=== PATIENT | male | born 1980 | race Caucasian/White ===

== ENCOUNTER 2021-01-23 14:17 | Inpatient (IN) | payer OTHER, SELFPAY ==
--- NOTE | ~2021-01-23 | US_ITS ---
EXAMINATION: US VENOUS ULTRASOUND WITH DOPPLER LOWER EXTREMITY, BILATERAL CLINICAL INFORMATION: Bilateral lower extremity swelling COMPARISON: None TECHNIQUE: Ultrasound of the deep veins is performed from the hip to the calf with compression sonography and color and pulse Doppler assessment. Spectral analysis with color-flow imaging is performed. FINDINGS: RIGHT: There is normal venous compression and respiratory variation and augmented flow. The visualized common femoral vein, superficial femoral vein, profunda femoral vein, popliteal vein, and the trifurcation region shows no evidence of deep venous thrombosis. There is no significant popliteal fossa cyst. LEFT: There is normal venous compression and respiratory variation and augmented flow. The visualized common femoral vein, superficial femoral vein, profunda femoral vein, popliteal vein, and the trifurcation region shows no evidence of deep venous thrombosis. There is no significant popliteal fossa cyst. US/US venous duplex LE BI IMPRESSION: No DVT demonstrated in the bilateral lower extremity.
--- NOTE | ~2021-01-23 | XR_ITS ---
EXAMINATION: CHEST 1 VIEW CLINICAL INFORMATION: Shortness of breath. COMPARISON: October 07, 2015. TECHNIQUE: An AP view of the chest is provided. FINDINGS: The cardiac silhouette is prominent. There are no consolidations. There is mild interstitial prominence throughout both lungs. There are neither pleural effusions nor pneumothoraces. The osseous structures are stable. XR/XR chest 1V IMPRESSION: Mild cardiomegaly with mild vascular congestion. No consolidations.
[2021-01-23 14:28] VITALS: BP 150/102; PULSE 123; RESP 18; TEMP 36.5; O2SAT 98; BMI 26.9
--- NOTE | 2021-01-23 14:56 | ED.GENADULT ---
HPI - General Adult General Chief complaint: Extremity Problem Stated complaint: feet and ankles swollen Time Seen by Provider: 01/23/21 14:56 Source: patient Mode of arrival: ambulatory Limitations: no limitations History of Present Illness HPI narrative: 40-year-old male with past medical history that is significant for cardiomyopathy he states he has been told this in the past but not exactly sure what is the cause of this, hypertension, hyperlipidemia, alcohol abuse who reports he currently drinks 1 pt of liquor a day plus several beers. States he called his primary care doctor today for lower extremity swelling has been going on for past couple days and was advised to come to emergency room. Related Data Home Medications Medication Instructions Recorded Confirmed albuterol sulfate [ProAir HFA] 2 puff INHALATION Q4H PRN 01/23/21 01/23/21 budesonide-formoterol 2 puff INHALATION BID 01/23/21 01/23/21 umeclidinium [Incruse Ellipta] 1 puff INHALATION DAILY 01/23/21 01/23/21 Allergies Allergy/AdvReac Type Severity Reaction Status Date / Time melon Allergy Severe SWELLING Verified 01/23/21 14:28 soy [SOY] Allergy Severe RESPIRATORY Verified 01/23/21 14:28 PROBLEMS acetaminophen [From TYLENOL] Allergy Unknown UNKNOWN Verified 01/23/21 14:28 azithromycin [From ZITHROMAX] Allergy Unknown UNKNOWN Verified 01/23/21 14:28 nut - unspecified [nut] Allergy Unknown RESPIRATORY Verified 01/23/21 14:28 ISSUES SEAFOOD Allergy Severe SWELLING, Uncoded 01/23/21 14:28 RESPIRATORY PROBLEMS Review of Systems Review of Systems: Constitutional: No Weight loss, No Fever, No Chills, No Night Sweats, No Fatigue, No Malaise ENT/Mouth: No Hearing loss, No Ear Pain, No Nasal Congestion, No Sinus Pain, No Hoarseness, No sore throat, No Rhinorrhea, No Swallowing Difficulty Eyes: No Eye Pain, No Swelling, No Redness, No Foreign Body, No Discharge, No Vision Changes Cardiovascular: No Chest Pain, No SOB, sometimes? Dyspnea on Exertion, , + Edema, No Palpitations Respiratory: No Cough, No Sputum, No Wheezing, No Smoke Exposure, No Dyspnea Gastrointestinal: No Nausea, No Vomiting, No Diarrhea, No Constipation, No abdominal Pain, No Hematochezia, No Melena Genitourinary: no irregular bleeding, No Dysuria, No Urinary Frequency, No Hematuria, No Urinary Incontinence, No Urgency, No Flank Pain, No Urinary Flow Changes, No Hesitancy Musculoskeletal: No joint pain, No Myalgias, No Joint Swelling Skin: No Skin Lesions, No rash Neuro: No Weakness, No Numbness, No Paresthesias, No Loss of Consciousness, No Dizziness, No Headache Psych: No Anxiety/Panic, No Depression, No SI/HI/AH/VH, No Social Issues Heme/Lymph: No Bruising, No Bleeding,No Lymphadenopathy Endocrine: No Polyuria, No Polydipsia, No Temperature Intolerance Yes all other systems are reviewed and are negative [facility] Past Medical History Medical History (Updated 01/23/21 @ 17:25 by Samson Bullock NP) Alcohol abuse Alcohol abuse Asthma Cardiomyopathy Cardiomyopathy Hyperlipidemia Hypertension Social History Social History (Updated 01/23/21 @ 17:01 by Nica Christiansen NP) Alcohol intake: current Alcohol intake frequency: a few times a week Alcohol type: beer and hard liquor Smoking Status: Current every day smoker Use of substances other than those prescribed or required for medical reasons: Yes Substance Use Type: Marijuana Substance Use Frequency: Socially Advance Directives: No Advance Directives Information Provided: No Physical Exam Vital Signs: Vital Signs: Last Vital Signs Temp 98.0 F 01/23/21 15:08 Pulse 114 H 01/23/21 16:25 Resp 18 01/23/21 16:25 BP 143/96 H 01/23/21 16:25 Pulse Ox 97 01/23/21 16:25 Body Mass Index 26.9 Reviewed Const: Other: Diaphoretic tachycardic General: anxious Orientation/consciousness: patient oriented x3 HENMT: Head: Yes normal to inspection Ears: hearing grossly normal bilaterally Eyes: General: appearance normal, both eyes and all related structures Visual Morales: normal visual morales by confrontation Sclerae: scleral abnormal (Slightly jaundice bilaterally) Neck: Neck: Yes normal visual inspection, No positive Brudzinski's sign, No positive Kernig's sign and No tender Thyroid: Thyroid normal Chest: Chest palpation & inspection: normal inspection of the chest Resp: Effort & Inspection: normal respiratory effort Auscultation: crackles (Bases) bilateral Cardio: Jugular venous distension: no JVD Rate: tachycardic (One hundred twenty) GI: Inspection: Yes normal to inspection Palpation (GI): Soft to palpation Percussion: Yes normal to percussion Auscultation: normal bowel sounds : General: Yes no CVA tenderness Back/Spine/Pelvis: Back: no CVA tenderness Skin: General skin exam: no rashes or lesions noted and jaundice (Mildly) Neuro: General: patient oriented x3 Extrem: General: Yes normal to inspection Psych: Appearance: well kempt Mental Status: mental status grossly normal Speech and movement: Clear speech present Affect: Anxious affect present Attitude: cooperative Thought process: Normal thought process present Thought content: Normal thought content present Insight: Good insight present (Psych) Judgement: Good judgement present (Psych) Course Course Course Narrative: States only had couple of beers today usually drinks later in the evening and in the 24 hour. At Pain of liquor and several beers. Upon arrival diaphoretic, tachycardic but no tremor. Bilateral lower extremities with 2+ edema states some mild pain to left calf. Given his history concern for alcohol withdrawal versus electrolyte derangement versus acute HF. Cardiopathy documented on his prior visit but no further workup and he has somewhat of poor historian. Will treat with IV lorazepam, banana bag not available will give oral multivitamin, folic acid and thiamine. Also given 2 mg of IV magnesium. Reevaluation(s) Reevaluation #1: Labs. Leukocytosis, history point is 22, no chest pain , BNP is 23 44 no prior. Given 10 mg IV Lasix he feels much better after lorazepam. Case discussed with hospitalist request to start phenobarbital protocol and plan for admission. Consultations Consultation #1: Nica hospitalist Medical Decision Making Lab Data Result diagrams: 01/23/21 15:16 01/23/21 15:16 Labs: Lab Results 01/23/21 01/23/21 01/23/21 Range/Units 15:16 15:16 15:16 WBC 9.6 (4.8-10.8) X10*3/uL RBC 4.46 L (4.60-5.80) X10*6/uL Hgb 15.2 (14.0-18.0) g/dl Hct 45.8 (42-52) % MCV 102.7 H (80-98) fL MCH 34.1 H (27.0-33.0) pg MCHC 33.2 (31.0-36.0) g/dl RDW 13.8 (11.0-16.0) % Plt Count 161 (160-400) X10*3/uL MPV 11.7 (9.4-12.4) fL Immature Gran % (Auto) 0.3 (0.0-0.4) % Neut % (Auto) 75.6 H (45-73) % Lymph % (Auto) 17.2 L (20-40) % [place] % (Auto) 5.4 (2-11) % Eos % (Auto) 0.9 (0-4) % Baso % (Auto) 0.6 (0-2) % Lymph # (Auto) 1.7 (1.2-4.9) X10*3/uL [place] # (Auto) 0.5 (0.1-1.2) X10*3/uL Eos # (Auto) 0.1 (0.0-0.4) X10*3/uL Baso # (Auto) 0.1 (0.0-0.2) X10*3/uL Abs Immat Gran (auto) 0.03 (0.00-0.03) X10*3/uL Absolute Neuts (auto) 7.3 (2.0-8.3) X10*3/uL Absolute Nucleated RBC 0.000 (0.0-0.012) X10*3/uL Nucleated RBC % (auto) 0.0 (0.0-0.2) /100WBC PT 13.5 H (10.8-13.0) SEC INR 1.1 (0.9-1.1) APTT 39.3 H (24.1-38.0) SEC Sodium 140 (135-145) mmol/L Potassium 4.8 (3.3-5.1) mmol/L Chloride 105 (96-108) mmol/L Carbon Dioxide 20 L (22-29) mmol/L Anion Gap 20 (12-20) BUN 10 (9-16) mg/dL Creatinine 0.94 (0.5-1.4) mg/dL Estim Creat Clear Calc 92.6 Estimated GFR > 60 Random Glucose 83 (60-115) mg/dL Calcium 8.8 (8.4-10.2) mg/dL Magnesium 1.5 L (1.6-2.6) mg/dL Total Bilirubin 2.3 H (0.0-1.0) mg/dL AST 58 H (5-37) U/L ALT 31 (0-40) U/L Alkaline Phosphatase 93 (39-117) U/L Troponin I High Sens (<3.5-35.0) ng/L B-Natriuretic Peptide (<100) pg/mL Total Protein 6.5 (6.5-8.0) g/dL Albumin 3.9 (3.5-5.0) g/dL Ethyl Alcohol mg/dL COVID-19 ([facility]) (Negative) COVID-19 Clin Com 01/23/21 01/23/21 01/23/21 Range/Units 15:16 15:16 15:34 WBC (4.8-10.8) X10*3/uL RBC (4.60-5.80) X10*6/uL Hgb (14.0-18.0) g/dl Hct (42-52) % MCV (80-98) fL MCH (27.0-33.0) pg MCHC (31.0-36.0) g/dl RDW (11.0-16.0) % Plt Count (160-400) X10*3/uL MPV (9.4-12.4) fL Immature Gran % (Auto) (0.0-0.4) % Neut % (Auto) (45-73) % Lymph % (Auto) (20-40) % [place] % (Auto) (2-11) % Eos % (Auto) (0-4) % Baso % (Auto) (0-2) % Lymph # (Auto) (1.2-4.9) X10*3/uL [place] # (Auto) (0.1-1.2) X10*3/uL Eos # (Auto) (0.0-0.4) X10*3/uL Baso # (Auto) (0.0-0.2) X10*3/uL Abs Immat Gran (auto) (0.00-0.03) X10*3/uL Absolute Neuts (auto) (2.0-8.3) X10*3/uL Absolute Nucleated RBC (0.0-0.012) X10*3/uL Nucleated RBC % (auto) (0.0-0.2) /100WBC PT (10.8-13.0) SEC INR (0.9-1.1) APTT (24.1-38.0) SEC Sodium (135-145) mmol/L Potassium (3.3-5.1) mmol/L Chloride (96-108) mmol/L Carbon Dioxide (22-29) mmol/L Anion Gap (12-20) BUN (9-16) mg/dL Creatinine (0.5-1.4) mg/dL Estim Creat Clear Calc Estimated GFR Random Glucose (60-115) mg/dL Calcium (8.4-10.2) mg/dL Magnesium (1.6-2.6) mg/dL Total Bilirubin (0.0-1.0) mg/dL AST (5-37) U/L ALT (0-40) U/L Alkaline Phosphatase (39-117) U/L Troponin I High Sens 22.6 (<3.5-35.0) ng/L B-Natriuretic Peptide 2344 H (<100) pg/mL Total Protein (6.5-8.0) g/dL Albumin (3.5-5.0) g/dL Ethyl Alcohol 48 mg/dL COVID-19 ([facility]) Negative (Negative) COVID-19 Clin Com See Note Discharge Plan Discharge Clinical Impression: Acute congestive heart failure, Alcohol abuse, Lower extremity edema, Hypomagnesemia Patient Disposition: Admitted As Inpatient Prescriptions: No Action albuterol sulfate [ProAir HFA] 90 mcg/actuation HFA aerosol inhaler 2 puff inhalation Q4H PRN (Reason: Shortness Of Breath) RF: 0 budesonide-formoterol 160-4.5 mcg/actuation HFA aerosol inhaler 2 puff inhalation BID RF: 0 Incruse Ellipta 62.5 mcg/actuation blister with device 1 puff inhalation DAILY RF: 0
--- NOTE | 2021-01-23 14:58 | ECG_ITS ---
Test Reason : TACHY Blood Pressure : / mmHG Vent. Rate : 121 BPM Atrial Rate : 121 BPM P-R Int : 128 ms QRS Dur : 188 ms QT Int : 352 ms P-R-T Axes : 073 080 -72 degrees QTc Int : 499 ms Sinus tachycardia Left atrial enlargement Left bundle branch block Abnormal ECG When compared with ECG of 07-OCT-2015 09:33, QRS duration has increased ; rate is higher Referred By: Samson Bullock Electronically Signed By:ORLANDO PLAZA
--- NOTE | 2021-01-23 14:58 | PC.NURSE ---
MICHAEL GAMBOA AT BEDSIDE FOR EXAM, REQUESTS PT BE MOVED TO ED RM3 ERIC BARRIGA [employer], ABDI AWARE, TRANSPORTED VIA WC BY ERIC MUÑOZ
[2021-01-23 15:08] VITALS: BP 140/107; PULSE 119; RESP 20; TEMP 36.7; O2SAT 97
[2021-01-23] MEDS: LORazepam 2 MG/ML VIAL 1 MG IVPUSH ×2 (15:18→17:00)
[2021-01-23 15:23] LABS: MANUAL DIFF FLAG NO
--- NOTE | 2021-01-23 15:23 | PC.NURSE ---
pt moved from em to ed bed 3, diaphoretic and tachy ranging from 120-115. pt reports coming in for left foot swelling for two days, no injury, no long travels, strong bilateral pedal pulses. visible tremor pt does report drinking daily one pint and some beers last drink was last night around 0000, no history of alcohol withdraws in the past. also reports feeling sob, sating at 96-94% on room air, slight wheezing on the right lower lobes.
[2021-01-23] MEDS: 0.9 % Sodium Chloride 500 ML IV (15:27)
[2021-01-23 15:30] LABS: INTERNATIONAL NORM RATIO 1.1 (0.9-1.1); Prothrombin Time 13.5 SEC (10.8-13.0)
[2021-01-23] MEDS: Multivitamin TABLET 1 TAB PO (15:30)
[2021-01-23] MEDS: Magnesium Sulfate/H2O 2 GM/50 ML PIGGYBACK IV (15:30)
[2021-01-23] MEDS: Thiamine HCL 100 MG TABLET PO (15:30)
[2021-01-23 15:33] LABS: Partial Thromboplastin Time 39.3 SEC (24.1-38.0)
[2021-01-23 15:34] LABS: Basophils Absolute Auto 0.1 X10*3/uL (0.0-0.2); Basophils Percent Auto 0.6 % (0-2); Eosinophils Absolute Auto 0.1 X10*3/uL (0.0-0.4); Eosinophils Percent Auto 0.9 % (0-4); Hematocrit 45.8 % (42-52); Hemoglobin 15.2 g/dl (14.0-18.0); Imm Gran Abs Auto 0.03 X10*3/uL (0.00-0.03); Imm Gran Pct Auto 0.3 % (0.0-0.4); Lymphocytes Absolute Auto 1.7 X10*3/uL (1.2-4.9); Lymphocytes Percent Auto 17.2 % (20-40); Mean Corpuscular HGB Conc 33.2 g/dl (31.0-36.0); Mean Corpuscular Hemoglobin 34.1 pg (27.0-33.0); Mean Corpuscular Volume 102.7 fL (80-98); Mean Platelet Volume 11.7 fL (9.4-12.4); Monocytes Absolute Auto 0.5 X10*3/uL (0.1-1.2); Monocytes Percent Auto 5.4 % (2-11); Neutrophils Absolute Auto 7.3 X10*3/uL (2.0-8.3); Neutrophils Percent Auto 75.6 % (45-73); Platelet Count 161 X10*3/uL (160-400); Red Blood Count 4.46 X10*6/uL (4.60-5.80); Red Cell Distribution Width 13.8 % (11.0-16.0); White Blood Count 9.6 X10*3/uL (4.8-10.8)
[2021-01-23 15:42] LABS: COVID-19 Test Negative (Negative); IDNOW Serial# 9DD0AD1C
[2021-01-23 15:55] LABS: B Type Natriuretic Peptide 2344 pg/mL (<100); Troponin-I High Sensitivity 22.6 ng/L (<3.5-35.0)
[2021-01-23 16:00] LABS: Ethanol 48 mg/dL
[2021-01-23 16:04] LABS: Alanine Aminotransferase 31 U/L (0-40); Albumin Level 3.9 g/dL (3.5-5.0); Alkaline Phosphatase 93 U/L (39-117); Anion Gap 20 (12-20); Aspartate Amino Transferase 58 U/L (5-37); Bilirubin Total 2.3 mg/dL (0.0-1.0); Blood Urea Nitrogen 10 mg/dL (9-16); Calcium 8.8 mg/dL (8.4-10.2); Carbon Dioxide 20 mmol/L (22-29); Chloride 105 mmol/L (96-108); Creatinine Clr Calc Pharmacy 92.6; Estimated Glomerular Filt Rate > 60; Glucose Random 83 mg/dL (60-115); Magnesium 1.5 mg/dL (1.6-2.6); Potassium 4.8 mmol/L (3.3-5.1); Sodium 140 mmol/L (135-145); Total Protein 6.5 g/dL (6.5-8.0)
[2021-01-23 16:25] VITALS: BP 143/96; PULSE 114; RESP 18; O2SAT 97
--- NOTE | 2021-01-23 16:26 | PC.NURSE ---
pt resting in the stretcher, reports feeling a little better, no diaphoresis noticed at this time, hr 114-113
--- NOTE | 2021-01-23 16:57 | PM.IMHP ---
History of Present Illness Date of Service: 01/23/21 Chief Complaint: Shortness of breath 40-year-old man presenting to the ER with complaints of increased shortness of breath and leg swelling over the last 2 days. He does report a history of heavy alcohol drinking and has been diagnosed with cardiomyopathy in the past. He denied fever, chest pain, nausea, vomiting, diarrhea, recent illness. He did report increased shortness of breath with ambulation and cough with brown sputum. chest x-ray showed cardiomegaly with mild vascular congestion and no consolidation. BNP 2344, total bilirubin 2.3, AST 58, magnesium 1.5, INR 1.1, COVID 19 negative. He was not noted to be hypoxic at any point. He was started on phenobarbital protocol for alcohol abuse, IV Lasix, he was also given thiamine, multivitamin. He will be admitted for further management treatment of acute congestive heart failure. Review of Systems Review of Systems: Denies any recent fever chills or decrease in appetite respiratory See HPI cardiovascular see HPI gastrointestinal denies any dysphagia abdominal pain nausea vomiting or diarrhea genitourinary denies any dysuria frequency or hematuria musculoskeletal denies any joint pain or swelling neuropsych denies any weakness or seizures all other systems reviewed are negative [facility] Medical History (Updated 01/23/21 @ 17:25 by Samson Bullock NP) Alcohol abuse Alcohol abuse Asthma Cardiomyopathy Cardiomyopathy Hyperlipidemia Hypertension Social History (Updated 01/23/21 @ 17:01 by Nica Christiansen NP) Household Members Other:: Nephew Housing: House Do you presently have visiting nurse or other home services: No Alcohol intake: current Alcohol intake frequency: a few times a week Alcohol type: beer and hard liquor Smoking Status: Current every day smoker Tobacco Type: Cigarette Packs Per Day: 2 Cigarettes Per Day: 40.0 Smoked in Last 30 Days: Yes Patient Interested in Nicotine Replacement: Yes Patient Given Instructions on How to Stop Smoking: Yes Date Education Initiated: 01/24/21 Second Hand Smoke Exposure: No Use of substances other than those prescribed or required for medical reasons: Yes Substance Use Type: Marijuana Substance Use Frequency: Socially Last Used Substance: Days (ago) Currently Displaying Signs/Symptoms of Drug Intoxication Withdrawal: No Have you been hit, kicked, punched, or otherwise hurt by someone within the past year? If so, by whom?: No Do you feel safe in your current relationship?: No Is there a partner from a previous relationship who is making you feel unsafe now?: No Are you made to feel afraid or neglected: No Advance Directives: No Advance Directives Information Provided: No Do you have thoughts of harming others: None Do you have a plan to hurt others: No Plan Recently lost weight without trying: Unsure Meds Allergies Allergy/AdvReac Type Severity Reaction Status Date / Time melon Allergy Severe SWELLING Verified 01/23/21 14:28 soy [SOY] Allergy Severe RESPIRATORY Verified 01/23/21 14:28 PROBLEMS acetaminophen [From TYLENOL] Allergy Unknown UNKNOWN Verified 01/23/21 14:28 azithromycin [From ZITHROMAX] Allergy Unknown UNKNOWN Verified 01/23/21 14:28 nut - unspecified [nut] Allergy Unknown RESPIRATORY Verified 01/23/21 14:28 ISSUES SEAFOOD Allergy Severe SWELLING, Uncoded 01/23/21 14:28 RESPIRATORY PROBLEMS Active Medications: Current Medications Generic Name Dose Route Start Last Admin Trade Name Freq PRN Reason Stop Dose Admin Magnesium Sulfate 2 gm in 50 mls @ 25 mls/hr 01/23/21 15:11 01/23/21 16:50 IV 01/23/21 17:10 Infused ONCE ONE Infusion Medication 1 each 01/24/21 09:00 No Benzodiazepines MISCELLANE DAILY [facility] Phenobarbital 45 mg 01/24/21 09:00 Phenobarbital 15 Mg Tablet PO 01/25/21 21:01 BID [facility] Phenobarbital 15 mg 01/26/21 09:00 Phenobarbital 15 Mg Tablet PO 01/27/21 21:01 BID [facility] Phenobarbital 15 mg 01/28/21 09:00 Phenobarbital 15 Mg Tablet PO 01/29/21 09:01 DAILY [facility] Phenobarbital Sodium 230 mg 01/23/21 17:00 Phenobarbital Sodium 130 Mg/Ml Vial IM 01/23/21 17:01 ONCE ONE Phenobarbital Sodium 185 mg 01/23/21 20:00 Phenobarbital Sodium 130 Mg/Ml Vial IM 01/23/21 23:01 Q3H [facility] Home Medications Medication Instructions Recorded Confirmed Last Taken Type albuterol sulfate [ProAir HFA] 2 puff INHALATION Q4H PRN 01/23/21 01/23/21 Unknown History budesonide-formoterol 2 puff INHALATION BID 01/23/21 01/23/21 Unknown History umeclidinium [Incruse Ellipta] 1 puff INHALATION DAILY 01/23/21 01/23/21 Unknown History Physical Exam Vital Signs and Narrative: Vital Signs: Last Vital Signs Temp 98.0 F 01/23/21 15:08 Pulse 114 H 01/23/21 16:25 Resp 18 01/23/21 16:25 BP 143/96 H 01/23/21 16:25 Pulse Ox 97 01/23/21 16:25 Body Mass Index 26.9 Appearing in no acute distress head is normocephalic atraumatic eyes pupils are PERRLA sclera is anicteric mouth throat mucous membranes are intact and moist neck is supple no lymphadenopathy, no JVD noted lung sounds Rales heart regular rate rhythm, clear S1, S2, +2 pitting edema from shins to feet bilaterally positive bowel sounds, abdomen is soft, nontender neuro patient is alert x3, no focal deficits Results Labs CBC and Chem 7: 01/24/21 05:47 01/24/21 05:47 Labs: Laboratory Results - last 24 hr 01/23/21 01/23/21 01/23/21 15:16 15:16 15:16 MCV 102.7 H MCH 34.1 H MCHC 33.2 RDW 13.8 Plt Count 161 MPV 11.7 Immature Gran % (Auto) 0.3 Neut % (Auto) 75.6 H Lymph % (Auto) 17.2 L [place] % (Auto) 5.4 Eos % (Auto) 0.9 Baso % (Auto) 0.6 Lymph # (Auto) 1.7 [place] # (Auto) 0.5 Eos # (Auto) 0.1 Baso # (Auto) 0.1 Abs Immat Gran (auto) 0.03 Absolute Neuts (auto) 7.3 Absolute Nucleated RBC 0.000 Nucleated RBC % (auto) 0.0 PT 13.5 H INR 1.1 APTT 39.3 H Anion Gap 20 Estim Creat Clear Calc 92.6 Estimated GFR > 60 Random Glucose 83 Calcium 8.8 Magnesium 1.5 L Total Bilirubin 2.3 H AST 58 H ALT 31 Alkaline Phosphatase 93 Troponin I High Sens B-Natriuretic Peptide Total Protein 6.5 Albumin 3.9 Ethyl Alcohol COVID-19 ([facility]) COVID-19 Clin Com 01/23/21 01/23/21 01/23/21 15:16 15:16 15:34 MCV MCH MCHC RDW Plt Count MPV Immature Gran % (Auto) Neut % (Auto) Lymph % (Auto) [place] % (Auto) Eos % (Auto) Baso % (Auto) Lymph # (Auto) [place] # (Auto) Eos # (Auto) Baso # (Auto) Abs Immat Gran (auto) Absolute Neuts (auto) Absolute Nucleated RBC Nucleated RBC % (auto) PT INR APTT Anion Gap Estim Creat Clear Calc Estimated GFR Random Glucose Calcium Magnesium Total Bilirubin AST ALT Alkaline Phosphatase Troponin I High Sens 22.6 B-Natriuretic Peptide 2344 H Total Protein Albumin Ethyl Alcohol 48 COVID-19 ([facility]) Negative COVID-19 Clin Com See Note Imaging Radiologist's Impressions: Impressions Chest X-Ray 01/23/21 14:58 IMPRESSION: Mild cardiomegaly with mild vascular congestion. No consolidations. Venous Duplex 01/23/21 14:58 IMPRESSION: No DVT demonstrated in the bilateral lower extremity. Assessment and Plan (1) Acute congestive heart failure: Status: Acute 40-year-old man admitted with acute congestive heart failure likely secondary to alcoholic cardiomyopathy complicated by a fall withdrawal symptoms. Patient was quite heavily at home started having symptoms lower extremity swelling approximately 2 days ago. He denies history of congestive heart failure in the past although he was diagnosed with cardiomyopathy likely alcohol induced. Acute congestive heart failure. Likely secondary to alcohol-induced cardiomyopathy. Reports new onset. - IV Lasix -echocardiogram -cardiology consultation -strict intake and output, daily weights Alcohol withdrawal. -phenobarbital protocol. -discussed the importance of safely sustaining from alcohol. Hypomagnesemia. Replete. -IV magnesium now. Transaminitis. Secondary to alcohol abuse. No coagulopathy noted. -trend LFTs. Hypertension. Elevated blood pressures. Denies home antihypertensives. -trend Allergic asthma. No exacerbation at this time. - albuterol as needed. Tobacco use. - discussed the importance of tobacco use cessation - nicotine replacement DVT prophylaxis with heparin Attending: Dr. Leija Full code
[2021-01-23] MEDS: Furosemide 20 MG/2 ML VIAL IVPUSH (17:00)
--- NOTE | 2021-01-23 17:00 | PM.EVENT ---
Event Note Date of Service: 01/23/21 Event Note: Patient seen and examined independently and was present during davis portion of E/M service. Agree with midlevel's history, physical, assessment, and plan. 40M presented with edema and sob and withdrawl symptoms Acute on chronic CHF with a reduced ejection fraction due to alcoholic cardiomyopathy complicated by an alcohol withdrawal IV Lasix, echo, cardiology phenobarb
[2021-01-23 17:10] LABS: Glucose Urine UA NEG (NEG); Leukocyte Esterase Urine NEG (NEG); Nitrite Urine NEG (NEG); Specific Gravity - Urine 1.015 (1.005-1.025); Urine Blood 1+ (NEG); Urine Ketones NEG (NEG); Urine Protein 2+ MG/DL (NEG-TRACE)
[2021-01-23 17:16] LABS: Appearance Urine CLEAR; Color Urine YELLOW
[2021-01-23] MEDS: PHENobarbitaL sodium 130 MG/ML VIAL 230 MG IM (17:16)
[2021-01-23 17:30] LABS: RBC Urine 0-2 /HPF (0); Squamous Epithelial Cell Urine TRACE /LPF; WBC Urine 0 /HPF (0-4)
[2021-01-23 17:37] LABS: Amphetamine Screen Urine Not Detected (Not Detect); Barbiturates, Urine Not Detected (Not Detect); Benzodiazepines Screen Urine Not Detected (Not Detect); Cannabinoid Screen Urine Not Detected (Not Detect); Cocaine Screen Urine Not Detected (Not Detect); Opiate Screen Urine Not Detected (Not Detect); Phencyclidine Screen Urine Not Detected (Not Detect)
[2021-01-23 18:16] VITALS: BP 142/86; PULSE 111; RESP 20; TEMP 37.1; O2SAT 96
--- NOTE | 2021-01-23 18:27 | PC.NURSE ---
REPORT GIVEN TO [facility] RN
[2021-01-23] MEDS: Heparin Sodium,Porcine 5,000 UNIT/ML VIAL 5000 UNIT SUBCUT (18:31)
[2021-01-23] MEDS: Furosemide 40 MG TABLET PO (18:31)
--- NOTE | 2021-01-23 18:32 | PC.NURSE ---
pt not given the mag 1g, already received mag 2g, pt voided about 650ml of yellow urine
[2021-01-23 20:00] VITALS: BP 139/101; PULSE 111; RESP 15; TEMP 36.6; O2SAT 95
[2021-01-23] MEDS: Nicotine 7 MG PATCH.TD24 TRANSDERMA (20:29)
[2021-01-23] MEDS: 0.9 % Sodium Chloride Flush 3 ML SYRINGE IVFLUSH (20:29)
[2021-01-23] MEDS: PHENobarbitaL sodium 130 MG/ML VIAL 185 MG IM ×2 (21:10→23:51)
[2021-01-23 23:26] VITALS: BP 119/81; PULSE 102; RESP 20; TEMP 36.9; O2SAT 95
[2021-01-24] VITALS (9 sets, daily range): BP systolic 117–146; BP diastolic 79–98; PULSE 84–101; RESP 16–20; TEMP 36–36.6; O2SAT 93–100
[2021-01-24] MEDS: Heparin Sodium,Porcine 5,000 UNIT/ML VIAL 5000 UNIT SUBCUT ×2 (05:43→16:11)
[2021-01-24 06:42] LABS: MANUAL DIFF FLAG NO
[2021-01-24 06:52] LABS: Basophils Absolute Auto 0.1 X10*3/uL (0.0-0.2); Basophils Percent Auto 0.7 % (0-2); Eosinophils Absolute Auto 0.2 X10*3/uL (0.0-0.4); Eosinophils Percent Auto 2.6 % (0-4); Hematocrit 43.7 % (42-52); Hemoglobin 14.7 g/dl (14.0-18.0); Imm Gran Abs Auto 0.03 X10*3/uL (0.00-0.03); Imm Gran Pct Auto 0.4 % (0.0-0.4); Lymphocytes Absolute Auto 1.4 X10*3/uL (1.2-4.9); Lymphocytes Percent Auto 19.4 % (20-40); Mean Corpuscular HGB Conc 33.6 g/dl (31.0-36.0); Mean Corpuscular Hemoglobin 34.3 pg (27.0-33.0); Mean Corpuscular Volume 101.9 fL (80-98); Mean Platelet Volume 12.1 fL (9.4-12.4); Monocytes Absolute Auto 0.7 X10*3/uL (0.1-1.2); Monocytes Percent Auto 9.1 % (2-11); Neutrophils Percent Auto 67.8 % (45-73); Platelet Count 143 X10*3/uL (160-400); Red Blood Count 4.29 X10*6/uL (4.60-5.80); Red Cell Distribution Width 13.9 % (11.0-16.0); White Blood Count 7.3 X10*3/uL (4.8-10.8)
[2021-01-24] MEDS: Fluticasone/Vilanterol 200/25 BLST.W.DEV 1 PUFF INHALE (07:14)
[2021-01-24 07:26] LABS: Alanine Aminotransferase 23 U/L (0-40); Albumin Level 3.5 g/dL (3.5-5.0); Alkaline Phosphatase 81 U/L (39-117); Aspartate Amino Transferase 49 U/L (5-37); Bilirubin Total 3.2 mg/dL (0.0-1.0); Blood Urea Nitrogen 12 mg/dL (9-16); Calcium 8.3 mg/dL (8.4-10.2); Creatinine Clr Calc Pharmacy 107.5; Estimated Glomerular Filt Rate > 60; Glucose Random 77 mg/dL (60-115); Total Protein 5.7 g/dL (6.5-8.0)
--- NOTE | 2021-01-24 07:40 | P.PNIM_ITS ---
Subjective Subjective Date of Service: 01/24/21 <Nica Christiansen NP - Last Filed: 01/24/21 10:06> 01/24/21 <Gabriel Izquierdo MD - Last Filed: 01/24/21 16:05> Interval History: Follow up for CHF. NO sob today, feels like there is less leg swelling. <Nica Christiansen NP - Last Filed: 01/24/21 10:06> Physical Exam Vital Signs: Vital Signs: Last Vital Signs Temp 98 F 01/24/21 06:52 Pulse 100 01/24/21 06:52 Resp 18 01/24/21 06:52 BP 146/98 H 01/24/21 06:52 Pulse Ox 98 01/24/21 06:52 Body Mass Index 26.9 <Nica Christiansen NP - Last Filed: 01/24/21 10:06> Appearing in no acute distress lung sounds are clear to auscultation heart regular rate rhythm, + 1 pitting edema positive bowel sounds, abdomen is soft, nontender neuro patient is alert x3, no focal deficits <Nica Christiansen NP - Last Filed: 01/24/21 10:06> Objective Data Current Medications Generic Name Dose Route Start Last Admin Trade Name Freq PRN Reason Stop Dose Admin Acetaminophen 650 mg 01/23/21 17:19 Acetaminophen 325 Mg Tablet PO Q6H PRN Pain, Mild (Pain Scale 1-3) Albuterol Sulfate 2 puff 01/23/21 17:19 Albuterol Sulfate 90 Mcg 8 Gm Inhaler INHALE Q4H PRN Shortness Of Breath Fluticasone/Vilanterol 1 puff 01/24/21 08:00 01/24/21 07:14 Fluticasone/Vilanterol 200/25 Blst.W.Dev INHALE 1 puff RDAILY ERICK Administration Folic Acid 1 mg 01/24/21 09:00 Folic Acid 1 Mg Tablet PO DAILY ERICK Furosemide 40 mg 01/23/21 18:00 01/23/21 18:31 Furosemide 40 Mg Tablet PO 40 mg BID@0900,1800 ERICK Administration Protocol Heparin Sodium (Porcine) 5,000 unit 01/23/21 18:00 01/24/21 05:43 Heparin Sodium,Porcine 5,000 Unit/Ml Vial SUBCUT 5,000 unit Q12H ERICK Administration Medication 1 each 01/24/21 09:00 No Benzodiazepines MISCELLANE DAILY [facility] Nicotine 7 mg 01/24/21 09:00 01/23/21 20:29 Nicotine 7 Mg Patch.Td24 TRANSDERMA 7 mg DAILY ERICK Administration Phenobarbital 45 mg 01/24/21 09:00 Phenobarbital 15 Mg Tablet PO 01/25/21 21:01 BID ERICK Phenobarbital 15 mg 01/26/21 09:00 Phenobarbital 15 Mg Tablet PO 01/27/21 21:01 BID ERICK Phenobarbital 15 mg 01/28/21 09:00 Phenobarbital 15 Mg Tablet PO 01/29/21 09:01 DAILY REICK Sodium Chloride 3 ml 01/24/21 00:00 01/23/21 20:29 0.9 % Sodium Chloride Flush 3 Ml Syringe IVFLUSH 3 ml QSHIFT ERICK Administration Thiamine HCl 100 mg 01/24/21 09:00 Thiamine Hcl 100 Mg Tablet PO DAILY ERICK Tiotropium [place] 1 puff 01/24/21 08:00 01/24/21 07:13 Tiotropium Cyrus 18 Mcg Cap.W.Dev INHALE 1 puff RDAILY ERICK Administration <Nica Christiansen NP - Last Filed: 01/24/21 10:06> Labs CBC & Chem 7: : 01/24/21 05:47 01/24/21 05:47 <Nica Christiansen NP - Last Filed: 01/24/21 10:06> Assessment and Plan (1) Acute congestive heart failure: Status: Acute <Nica Christiansen NP - Last Filed: 01/24/21 10:06> Assessment and Plan: 40-year-old man admitted with acute congestive heart failure likely secondary to alcoholic cardiomyopathy complicated by a fall withdrawal symptoms. Patient was quite heavily at home started having symptoms lower extremity swelling approximately 2 days ago. He denies history of congestive heart failure in the past although he was diagnosed with cardiomyopathy likely alcohol induced. Acute congestive heart failure. Likely secondary to alcohol-induced cardiomyopathy. Reports new onset -IV Lasix 40 BID -start coreg 3.125 bid, lisinopril 5 daily. -echocardiogram -cardiology following -strict intake and output, daily weights Alcohol withdrawal. -phenobarbital protocol. -discussed the importance of safely sustaining from alcohol. Hypomagnesemia. Repleted. -IV magnesium Transaminitis. Secondary to alcohol abuse. No coagulopathy noted. -trend LFTs. Hypertension. Elevated blood pressures. Denies home antihypertensives. -trend -start Lisinopril Allergic asthma. No exacerbation at this time. - albuterol as needed. Tobacco use. - discussed the importance of tobacco use cessation - nicotine replacement Attending: Dr. Izquierdo <Nica Christiansen NP - Last Filed: 01/24/21 10:06>
[2021-01-24 07:44] LABS: Anion Gap 20 (12-20); Carbon Dioxide 23 mmol/L (22-29); Chloride 103 mmol/L (96-108); Potassium 3.8 mmol/L (3.3-5.1); Sodium 142 mmol/L (135-145)
[2021-01-24 08:48] LABS: B Type Natriuretic Peptide 4225 pg/mL (<100)
[2021-01-24] MEDS: PHENobarbitaL 15 MG TABLET 45 MG PO ×2 (09:12→20:51)
[2021-01-24] MEDS: Thiamine HCL 100 MG TABLET PO (09:13)
[2021-01-24] MEDS: Folic Acid 1 MG TABLET PO (09:13)
[2021-01-24] MEDS: Nicotine 7 MG PATCH.TD24 TRANSDERMA (09:13)
[2021-01-24] MEDS: Furosemide 40 MG TABLET PO (09:13)
[2021-01-24] MEDS: 0.9 % Sodium Chloride Flush 3 ML SYRINGE IVFLUSH ×3 (09:14→20:53)
--- NOTE | 2021-01-24 09:26 | P.CONCA_ITS ---
History of Present Illness History of Present Illness Date of Service: 01/24/21 Consult reason: congestive heart failure Chief complaint: chf Narrative: This is a cardiology consultation regarding congestive heart failure. Patient has the history of what appears to be alcoholic cardiomyopathy. He apparently used to see Dr. Maloney from 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 He continues to drink a lot. In the last few days, he has been feeling short of breath and also noticing some leg swelling. That led to the hospitalization. No anginal-type symptoms. We have been asked to see him for further evaluation. Review of Systems Review of Systems: Yes all other systems are reviewed and are negative Cardiovascular: Cardiovascular: Reports as per HPI, Reports no additional cardiovascular complaints, Denies acrocyanosis, Denies cool extremities, Denies painful fingertips, Denies chest pain, Denies chest pain at rest, Denies diaphoresis, Denies syncope, Denies irregular heart rhythm, Denies claudication, Reports leg edema, Denies lightheadedness, Denies palpitations and Reports dyspnea Respiratory: Respiratory: Reports dyspnea Neurologic: Denies syncope Endocrine: Endocrine: Denies palpitations [facility] Past Medical History Medical History (Updated 01/24/21 @ 09:31 by Christiano Felix MD) Alcohol abuse Alcohol abuse Alcoholic cardiomyopathy Asthma Cardiomyopathy Cardiomyopathy Essential hypertension Hyperlipidemia Hypertension LBBB (left bundle branch block) Family History Family history: reviewed and not pertinent Social History Social History (Updated 01/23/21 @ 17:01 by Nica Christiansen NP) Household Members Other:: Nephew Housing: House Do you presently have visiting nurse or other home services: No Alcohol intake: current Alcohol intake frequency: a few times a week Alcohol type: beer and hard liquor Smoking Status: Current every day smoker Tobacco Type: Cigarette Packs Per Day: 2 Cigarettes Per Day: 40.0 Smoked in Last 30 Days: Yes Patient Interested in Nicotine Replacement: Yes Patient Given Instructions on How to Stop Smoking: Yes Date Education Initiated: 01/24/21 Second Hand Smoke Exposure: No Use of substances other than those prescribed or required for medical reasons: Yes Substance Use Type: Marijuana Substance Use Frequency: Socially Last Used Substance: Days (ago) Currently Displaying Signs/Symptoms of Drug Intoxication Withdrawal: No Have you been hit, kicked, punched, or otherwise hurt by someone within the past year? If so, by whom?: No Do you feel safe in your current relationship?: No Is there a partner from a previous relationship who is making you feel unsafe now?: No Are you made to feel afraid or neglected: No Advance Directives: No Advance Directives Information Provided: No Do you have thoughts of harming others: None Do you have a plan to hurt others: No Plan Recently lost weight without trying: Unsure Meds Allergies Allergy/AdvReac Type Severity Reaction Status Date / Time melon Allergy Severe SWELLING Verified 01/23/21 14:28 soy [SOY] Allergy Severe RESPIRATORY Verified 01/23/21 14:28 PROBLEMS acetaminophen [From TYLENOL] Allergy Unknown UNKNOWN Verified 01/23/21 14:28 azithromycin [From ZITHROMAX] Allergy Unknown UNKNOWN Verified 01/23/21 14:28 nut - unspecified [nut] Allergy Unknown RESPIRATORY Verified 01/23/21 14:28 ISSUES SEAFOOD Allergy Severe SWELLING, Uncoded 01/23/21 14:28 RESPIRATORY PROBLEMS Active Medications: Current Medications Generic Name Dose Route Start Last Admin Trade Name Freq PRN Reason Stop Dose Admin Acetaminophen 650 mg 01/23/21 17:19 Acetaminophen 325 Mg Tablet PO Q6H PRN Pain, Mild (Pain Scale 1-3) Albuterol Sulfate 2 puff 01/23/21 17:19 Albuterol Sulfate 90 Mcg 8 Gm Inhaler INHALE Q4H PRN Shortness Of Breath Fluticasone/Vilanterol 1 puff 01/24/21 08:00 01/24/21 07:14 Fluticasone/Vilanterol 200/25 Blst.W.Dev INHALE 1 puff RDAILY ERICK Administration Folic Acid 1 mg 01/24/21 09:00 01/24/21 09:13 Folic Acid 1 Mg Tablet PO 1 mg DAILY ERICK Administration Furosemide 40 mg 01/23/21 18:00 01/24/21 09:13 Furosemide 40 Mg Tablet PO 40 mg BID@0900,1800 [facility] Administration Protocol Heparin Sodium (Porcine) 5,000 unit 01/23/21 18:00 01/24/21 05:43 Heparin Sodium,Porcine 5,000 Unit/Ml Vial SUBCUT 5,000 unit Q12H ERICK Administration Medication 1 each 01/24/21 09:00 No Benzodiazepines MISCELLANE DAILY ERICK Nicotine 7 mg 01/24/21 09:00 01/24/21 09:13 Nicotine 7 Mg Patch.Td24 TRANSDERMA 7 mg DAILY [facility] Administration Phenobarbital 45 mg 01/24/21 09:00 01/24/21 09:12 Phenobarbital 15 Mg Tablet PO 01/25/21 21:01 45 mg BID [facility] Administration Phenobarbital 15 mg 01/26/21 09:00 Phenobarbital 15 Mg Tablet PO 01/27/21 21:01 BID [facility] Phenobarbital 15 mg 01/28/21 09:00 Phenobarbital 15 Mg Tablet PO 01/29/21 09:01 DAILY [facility] Sodium Chloride 3 ml 01/24/21 00:00 01/24/21 09:14 0.9 % Sodium Chloride Flush 3 Ml Syringe IVFLUSH 3 ml QSHIFT [facility] Administration Thiamine HCl 100 mg 01/24/21 09:00 01/24/21 09:13 Thiamine Hcl 100 Mg Tablet PO 100 mg DAILY [facility] Administration Tiotropium [place] 1 puff 01/24/21 08:00 01/24/21 07:13 Tiotropium [place] 18 Mcg Cap.W.Dev INHALE 1 puff RDAILY [facility] Administration Home Medications Medication Instructions Recorded Confirmed Last Taken Type albuterol sulfate [ProAir HFA] 2 puff INHALATION Q4H PRN 01/23/21 01/23/21 Unknown History budesonide-formoterol 2 puff INHALATION BID 01/23/21 01/23/21 Unknown History umeclidinium [Incruse Ellipta] 1 puff INHALATION DAILY 01/23/21 01/23/21 Unknown History Physical Exam Vital Signs: Vital Signs: Last Vital Signs Temp 98 F 01/24/21 06:52 Pulse 100 01/24/21 06:52 Resp 18 01/24/21 06:52 BP 146/98 H 01/24/21 06:52 Pulse Ox 98 01/24/21 06:52 Body Mass Index 26.9 Const: General: cooperative, comfortable and no acute distress Orientation/consciousness: patient oriented x3 HENMT: Other: Unremarkable Neck: Neck: Yes normal visual inspection Chest: Chest palpation & inspection: normal inspection of the chest Resp: Auscultation: clear to auscultation bilaterally, no crackles and no wheezes Cardio: Jugular venous distension: no JVD Palpation: normal PMI Heart sounds: S1 normal heart sound present, S2 normal heart sound present, no gall ops, no murmurs and no rubs GI: Palpation (GI): Soft to palpation Back/Spine/Pelvis: Other: unremarkable Skin: General skin exam: no rashes or lesions noted Neuro: General: patient oriented x3 Extrem: General: Yes edema (Trace) Psych: Mental Status: mental status grossly normal Results Labs and Meds Result diagrams: 01/24/21 05:47 01/24/21 05:47 Lab results: Laboratory Results - last 24 hr 01/23/21 01/23/21 01/23/21 15:16 15:16 15:16 WBC 9.6 RBC 4.46 L Hgb 15.2 Hct 45.8 MCV 102.7 H MCH 34.1 H MCHC 33.2 RDW 13.8 Plt Count 161 MPV 11.7 Immature Gran % (Auto) 0.3 Neut % (Auto) 75.6 H Lymph % (Auto) 17.2 L [place] % (Auto) 5.4 Eos % (Auto) 0.9 Baso % (Auto) 0.6 Lymph # (Auto) 1.7 [place] # (Auto) 0.5 Eos # (Auto) 0.1 Baso # (Auto) 0.1 Abs Immat Gran (auto) 0.03 Absolute Neuts (auto) 7.3 Absolute Nucleated RBC 0.000 Nucleated RBC % (auto) 0.0 PT 13.5 H INR 1.1 APTT 39.3 H Sodium 140 Potassium 4.8 Chloride 105 Carbon Dioxide 20 L Anion Gap 20 BUN 10 Creatinine 0.94 Estim Creat Clear Calc 92.6 Estimated GFR > 60 Random Glucose 83 Calcium 8.8 Magnesium 1.5 L Total Bilirubin 2.3 H Direct Bilirubin AST 58 H ALT 31 Alkaline Phosphatase 93 Troponin I High Sens B-Natriuretic Peptide Total Protein 6.5 Albumin 3.9 Urine Color Urine Appearance Urine pH Ur Specific [place] Urine Protein Urine Glucose (UA) Urine Ketones Urine Blood Urine Nitrite Ur Leukocyte Esterase Urine RBC Urine WBC Ur Squamous Epith Cells Urine Bacteria Urine Opiates Screen Ur Barbiturates Screen Ur Phencyclidine Scrn Ur Amphetamines Screen U Benzodiazepines Scrn Urine Cocaine Screen U Marijuana (THC) Screen Ethyl Alcohol COVID-19 ([facility]) COVID-19 Clin Com 01/23/21 01/23/21 01/23/21 15:16 15:16 15:34 WBC RBC Hgb Hct MCV MCH MCHC RDW Plt Count MPV Immature Gran % (Auto) Neut % (Auto) Lymph % (Auto) [place] % (Auto) Eos % (Auto) Baso % (Auto) Lymph # (Auto) [place] # (Auto) Eos # (Auto) Baso # (Auto) Abs Immat Gran (auto) Absolute Neuts (auto) Absolute Nucleated RBC Nucleated RBC % (auto) PT INR APTT Sodium Potassium Chloride Carbon Dioxide Anion Gap BUN Creatinine Estim Creat Clear Calc Estimated GFR Random Glucose Calcium Magnesium Total Bilirubin Direct Bilirubin AST ALT Alkaline Phosphatase Troponin I High Sens 22.6 B-Natriuretic Peptide 2344 H Total Protein Albumin Urine Color Urine Appearance Urine pH Ur Specific [place] Urine Protein Urine Glucose (UA) Urine Ketones Urine Blood Urine Nitrite Ur Leukocyte Esterase Urine RBC Urine WBC Ur Squamous Epith Cells Urine Bacteria Urine Opiates Screen Ur Barbiturates Screen Ur Phencyclidine Scrn Ur Amphetamines Screen U Benzodiazepines Scrn Urine Cocaine Screen U Marijuana (THC) Screen Ethyl Alcohol 48 COVID-19 ([facility]) Negative COVID-19 Clin Com See Note 01/23/21 01/23/21 01/24/21 16:45 16:45 05:47 WBC 7.3 RBC 4.29 L Hgb 14.7 Hct 43.7 MCV 101.9 H MCH 34.3 H MCHC 33.6 RDW 13.9 Plt Count 143 L MPV 12.1 Immature Gran % (Auto) 0.4 Neut % (Auto) 67.8 Lymph % (Auto) 19.4 L [place] % (Auto) 9.1 Eos % (Auto) 2.6 Baso % (Auto) 0.7 Lymph # (Auto) 1.4 [place] # (Auto) 0.7 Eos # (Auto) 0.2 Baso # (Auto) 0.1 Abs Immat Gran (auto) 0.03 Absolute Neuts (auto) 5.0 Absolute Nucleated RBC 0.000 Nucleated RBC % (auto) 0.0 PT INR APTT Sodium Potassium Chloride Carbon Dioxide Anion Gap BUN Creatinine Estim Creat Clear Calc Estimated GFR Random Glucose Calcium Magnesium Total Bilirubin Direct Bilirubin AST ALT Alkaline Phosphatase Troponin I High Sens B-Natriuretic Peptide Total Protein Albumin Urine Color YELLOW Urine Appearance CLEAR Urine pH 6.0 Ur Specific [place] 1.015 Urine Protein 2+ H Urine Glucose (UA) NEG Urine Ketones NEG Urine Blood 1+ H Urine Nitrite NEG Ur Leukocyte Esterase NEG Urine RBC 0-2 Urine WBC 0 Ur Squamous Epith Cells TRACE Urine Bacteria NONE Urine Opiates Screen Not Detected Ur Barbiturates Screen Not Detected Ur Phencyclidine Scrn Not Detected Ur Amphetamines Screen Not Detected U Benzodiazepines Scrn Not Detected Urine Cocaine Screen Not Detected U Marijuana (THC) Screen Not Detected Ethyl Alcohol COVID-19 ([facility]) COVID-19 [place] Com 01/24/21 01/24/21 05:47 05:47 WBC RBC Hgb Hct MCV MCH MCHC RDW Plt Count MPV Immature Gran % (Auto) Neut % (Auto) Lymph % (Auto) [place] % (Auto) Eos % (Auto) Baso % (Auto) Lymph # (Auto) [place] # (Auto) Eos # (Auto) Baso # (Auto) Abs Immat Gran (auto) Absolute Neuts (auto) Absolute Nucleated RBC Nucleated RBC % (auto) PT INR APTT Sodium 142 Potassium 3.8 D Chloride 103 Carbon Dioxide 23 Anion Gap 20 BUN 12 Creatinine 0.81 Estim Creat Clear Calc 107.5 Estimated GFR > 60 Random Glucose 77 Calcium 8.3 L Magnesium Total Bilirubin 3.2 H Direct Bilirubin 1.0 H AST 49 H ALT 23 Alkaline Phosphatase 81 Troponin I High Sens B-Natriuretic Peptide 4225 H Total Protein 5.7 L Albumin 3.5 Urine Color Urine Appearance Urine pH Ur Specific [place] Urine Protein Urine Glucose (UA) Urine Ketones Urine Blood Urine Nitrite Ur Leukocyte Esterase Urine RBC Urine WBC Ur Squamous Epith Cells Urine Bacteria Urine Opiates Screen Ur Barbiturates Screen Ur Phencyclidine Scrn Ur Amphetamines Screen U Benzodiazepines Scrn Urine Cocaine Screen U Marijuana (THC) Screen Ethyl Alcohol COVID-19 ([facility]) COVID-19 Clin Com ECG Attestation: I personally reviewed and interpreted this ECG as follows: Interpretation: EKG with sinus tachycardia and underlying left bundle-branch block. Previously noted to have left bundle-branch block from 2015. Imaging Radiologist's impression: Impressions Chest X-Ray 01/23/21 14:58 IMPRESSION: Mild cardiomegaly with mild vascular congestion. No consolidations. Venous Duplex 01/23/21 14:58 IMPRESSION: No DVT demonstrated in the bilateral lower extremity. Assessment and Plan (1) Alcoholic cardiomyopathy: Status: Acute (2) Acute on chronic systolic (congestive) heart failure: Status: Acute (3) Alcohol abuse: Status: Acute (4) Essential hypertension: Status: Acute (5) LBBB (left bundle branch block): Status: Acute Most likely this is all longstanding alcoholic cardiomyopathy. Complete abstention alcohol advised. Explained the seriousness of the situation to him. Otherwise may start on Coreg/lisinopril. Clinically, does not appear much volume overloaded. May remain on Lasix as currently on. Will review echocardiogram completed today and follow up with you. Echocardiogram from 2014-LVEF 25-30%.
--- NOTE | 2021-01-24 09:44 | MHC.CM.PN ---
met with pt who reports not hving any agencey involvement prior to admission pt will self arrange transportaion home
[2021-01-24] MEDS: lisinopriL 5 MG TABLET PO (12:07)
[2021-01-24] MEDS: carvediloL 3.125 MG TABLET PO ×2 (12:07→20:52)
[2021-01-24] MEDS: Furosemide 40 MG/4 ML VIAL IVPUSH (16:11)
--- NOTE | 2021-01-24 17:19 | CA_ITS ---
Transthoracic Echocardiogram Patient (Last, First, Middle): Ashwin Livingston, Gender: Male Date of : 1980 Age: 40 Procedure Date: 01/24/2021 Procedure Type: Transthoracic Echocardiogram [place] [facility] [place]: 165.1 cm Weight: 73.48 kg BSA: 1.81 m2 Heart Rate: bpm BP: 132 / 92 mmHg Rehabilitation Nurse: Referring MD: Nica Christiansen NP Symptoms: chf, cmp Study Quality: Fair ECG Rhythm: Sinus Conclusions: - The left ventricular systolic function is severely decreased. The visually estimated ejection fraction is between 10-15%. - There is moderate mitral valve regurgitation. - There is moderate tricuspid valve regurgitation. - Moderate pulmonary hypertension is present. Findings Left Ventricle Severely increased left ventricular cavity size. There is normal left ventricular wall thickness. The left ventricular systolic function is severely decreased. The visually estimated ejection fraction is between 10 15%. There is moderate global hypokinesis. Right Ventricle Normal right ventricular cavity size and systolic function. Atria The left atrium is severely dilated. The right atrium is mildly dilated. Aortic Valve There is a normal trileaflet aortic valve. There is no aortic valve stenosis. There is trace (trivial) aortic valve regurgitation. Mitral Valve The mitral valve appears normal. There is moderate mitral valve regurgitation. There is no mitral valve stenosis. Pulmonic Valve The pulmonic valve was not well visualized. There is mild pulmonic valve regurgitation. Tricuspid Valve There is moderate tricuspid valve regurgitation. The right ventricular systolic pressure is 49 mmHg. Moderate pulmonary hypertension is present. Great Vessels The aortic annulus, sinuses of valsalva, and asc aorta are normal in size. Venous The inferior vena cava is normal in size and collapses greater than 50% with inspiration. Pericardium/Pleural There is a trivial pericardial effusion. Prior Study Comparison Changes noted compared to prior study dated: 10/07/2015. LVEF further diminished. Measurements 2D Linear Measurements IVSd: 0.83 0.6-0.9/0.6-1.0 cm LVIDd: 7.83 3.9-5.3/4.2-5.9 cm LVIDd Index: 4.33 2.4-3.2/2.2-3.1 cm/m2 LVIDs: 7.24 2.0-3.6 cm LVPWd: 0.90 0.7-1.1 cm Ao Root: 2.60 2.1-3.5 cm LA Diam: 5.40 2.7-3.8/3.0-4.0 cm LAIDs Index: 2.98 1.5-2.3 cm/m2 LV Mass: 409.14 67-162/88-224 g LV Mass Index: 226.04 43-95/49-115 g/m2 LVOT Diam: 2.20 3.0+(-)1.3 cm 2D Systolic Function EF 4C: 12.00 >55% EF 2C: 26.30 >55% Mitral Valve MV Pk E: 1.38 MV Decel Time: 99.00 E'Lateral: 11.10 E'Medial: 6.29 E/E' Med: 21.90 E/E' Lat: 12.40 PHT: 29.00 MVA PHT: 7.59 Decel Rowan: 14.02 MR Vol - PW Dopp: 50.68 MR VTI: 1.81 MR ERO: 28.00 MR Alias Ziyad: 0.36 MR RAD: 0.80 Aortic Valve AoV Pk Ziyad: 0.99 AoV Mn Ziyad: 0.69 AoV VTI: 0.18 AoV Pk Grad: 4.00 Aov Mn Grad: 2.00 JASBIR Cont.VTI: 2.22 LVOT LVOT Pk Ziyad: 0.70 LVOT Mn Ziyad: 0.48 LVOT VTI: 0.11 LVOT Pk Grad: 2.00 LVOT Mn Grad: 1.00 LVOT Diam: 2.20 LVOT Area: 3.80 Diastolic Function MV Pk E: 1.38 E'Medial: 6.29 E/E' Med: 21.90 E' Laterial: 11.10 E/E' Lat: 12.40 Tricuspid Valve TR Pk Ziyad: 3.19 TR Pk Grad: 41.00 RA Press: 8.00 RVSP: 49.00 Great Vessels Aorta Ao Root-2D: 2.60 2.0-3.7 cm Ao Asc: 3.10 2.1-3.4 cm Pulmonary Valve PV Pk Ziyad: 0.86 Peak PV Grad: 3.00 Updated in Other Vendor System with Status of Final Christiano Felix MD electronically signed on 01/24/2021 5:23:26 PM with status of Final
[2021-01-25] MEDS: diphenhydrAMINE HCL 50 MG/ML VIAL 25 MG IVPUSH (01:20)
[2021-01-25 04:00] VITALS: BP 113/56; PULSE 85; RESP 18; TEMP 36.6; O2SAT 95
[2021-01-25] MEDS: Heparin Sodium,Porcine 5,000 UNIT/ML VIAL 5000 UNIT SUBCUT (05:48)
[2021-01-25 06:24] LABS: MANUAL DIFF FLAG NO
[2021-01-25 06:50] LABS: Basophils Percent Auto 0.5 % (0-2); Eosinophils Absolute Auto 0.2 X10*3/uL (0.0-0.4); Eosinophils Percent Auto 3.4 % (0-4); Hematocrit 43.7 % (42-52); Hemoglobin 14.9 g/dl (14.0-18.0); Imm Gran Abs Auto 0.05 X10*3/uL (0.00-0.03); Imm Gran Pct Auto 0.8 % (0.0-0.4); Lymphocytes Absolute Auto 1.3 X10*3/uL (1.2-4.9); Lymphocytes Percent Auto 21.7 % (20-40); Mean Corpuscular HGB Conc 34.1 g/dl (31.0-36.0); Mean Corpuscular Hemoglobin 34.3 pg (27.0-33.0); Mean Corpuscular Volume 100.5 fL (80-98); Mean Platelet Volume 12.2 fL (9.4-12.4); Monocytes Absolute Auto 0.6 X10*3/uL (0.1-1.2); Monocytes Percent Auto 10.5 % (2-11); Neutrophils Absolute Auto 3.7 X10*3/uL (2.0-8.3); Neutrophils Percent Auto 63.1 % (45-73); Platelet Count 125 X10*3/uL (160-400); Red Blood Count 4.35 X10*6/uL (4.60-5.80); Red Cell Distribution Width 13.2 % (11.0-16.0); White Blood Count 5.9 X10*3/uL (4.8-10.8)
[2021-01-25 06:57] LABS: Anion Gap 17 (12-20); Blood Urea Nitrogen 9 mg/dL (9-16); Carbon Dioxide 28 mmol/L (22-29); Chloride 96 mmol/L (96-108); Creatinine Clr Calc Pharmacy 107.5; Estimated Glomerular Filt Rate > 60; Glucose Random 75 mg/dL (60-115); Potassium 3.2 mmol/L (3.3-5.1); Sodium 138 mmol/L (135-145)
[2021-01-25 07:06] LABS: B Type Natriuretic Peptide 1758 pg/mL (<100)
[2021-01-25 07:33] VITALS: BP 123/89; PULSE 98; RESP 20; TEMP 36.1; O2SAT 97
[2021-01-25] MEDS: Fluticasone/Vilanterol 200/25 BLST.W.DEV 1 PUFF INHALE (07:59)
[2021-01-25 08:01] VITALS: PULSE 88; O2SAT 94
[2021-01-25 08:57] LABS: Alanine Aminotransferase 23 U/L (0-40); Albumin Level 3.2 g/dL (3.5-5.0); Alkaline Phosphatase 75 U/L (39-117); Aspartate Amino Transferase 53 U/L (5-37); Bilirubin Direct 0.7 mg/dL (0.0-0.5); Bilirubin Total 1.7 mg/dL (0.0-1.0); Magnesium 1.6 mg/dL (1.6-2.6); Total Protein 5.1 g/dL (6.5-8.0)
[2021-01-25] MEDS: Furosemide 40 MG/4 ML VIAL IVPUSH (08:59)
[2021-01-25 09:00] VITALS: PULSE 98
[2021-01-25] MEDS: Folic Acid 1 MG TABLET PO (09:00)
[2021-01-25] MEDS: Thiamine HCL 100 MG TABLET PO (09:00)
[2021-01-25] MEDS: Potassium Chloride ER 20 MEQ TAB.ER.PRT 60 MEQ PO (09:00)
[2021-01-25] MEDS: lisinopriL 5 MG TABLET PO (09:00)
[2021-01-25 09:01] VITALS: PULSE 98
[2021-01-25] MEDS: carvediloL 3.125 MG TABLET PO (09:01)
[2021-01-25] MEDS: PHENobarbitaL 15 MG TABLET 45 MG PO (09:01)
[2021-01-25] MEDS: 0.9 % Sodium Chloride Flush 3 ML SYRINGE IVFLUSH (09:02)
--- NOTE | 2021-01-25 11:05 | PM.DS ---
DS: Providers Provider Date of Service: 01/25/21 Date of admission: 01/23/21 17:19 Primary care physician: Mirta James DO Consults: 01/23/21 17:19 Consult to Cardiology Routine Consulting Provider: Christiano Felix Reason for consultation: chf Has provider been notified: No 01/25/21 09:58 Consult to Care Team Routine Comment: Reason for consultation: etoh DS: Diagnosis Discharge Diagnosis (1) Acute systolic heart failure: Status: Acute (2) Alcohol withdrawal: Status: Acute (3) Alcoholic liver disease: Status: Acute (4) Alcoholic cardiomyopathy: Status: Acute (5) Hypomagnesemia: Status: Acute DS: Medications Discharge Medications Home Medications: Home Medications Medication Instructions Recorded Confirmed Incruse Ellipta 1 puff INHALATION DAILY 01/23/21 01/23/21 albuterol sulfate [ProAir HFA] 2 puff INHALATION Q4H PRN 01/23/21 01/23/21 budesonide-formoterol 2 puff INHALATION BID 01/23/21 01/23/21 Previous Rx's Medication Instructions Recorded carvedilol 3.125 mg PO BID #60 tab 01/25/21 furosemide 40 mg PO DAILY #30 tab 01/25/21 lisinopril 5 mg PO DAILY #60 tab 01/25/21 nicotine 7 mg TRANSDERMAL DAILY #14 ea 01/25/21 DS: Summary Hospital Course Hospital Course: Patient presented with alcohol withdrawal and acute heart failure. He was diuresed and treated with phenobarbital per protocol. His electrolytes were monitored and repleted as necessary. He underwent cardiology evaluation as well as 2D echo. Cardiology recommended starting him on cardiomyopathy medications including Coreg, lisinopril. His echo showed EF of 10-15% which the patient reported has been the case for many years. He reported that he stopped following up with [facility] and has been urged to call them for follow-up. Time Spent with Patient Time attestation: Total time spent providing and/or coordinating discharge services: Discharge coordination time: Greater than 30 minutes Physical Exam Vital Signs: Vital Signs: Last Vital Signs Temp 96.9 F 01/25/21 07:33 Pulse 98 01/25/21 09:01 Resp 20 01/25/21 07:33 BP 123/89 01/25/21 07:33 Pulse Ox 97 01/25/21 07:33 Body Mass Index 26.9 Const: Other: Constitutional - Awake and Alert, No apparent distress Eyes - PERRLA, EOMI Cardiovascular - S1S2, RRR, No edema Respiratory - Normal lung expansion, Normal respiratory effort, No respiratory distress, CTA bilaterally Gastrointestinal - NT / ND; +BS; No rebound or guarding - No CVA tenderness Extremities - no calf tenderness bilaterally, no swelling Musculoskeletal - Normal inspection, normal ROM Skin - Warm/Dry Neurological - Alert & oriented x3, No focal deficit Psychological - Appropriate affect DS: Data Data Completed and Pending Labs on day of discharge: Laboratory Results - last 24 hr 01/25/21 01/25/21 01/25/21 05:24 05:24 05:24 WBC 5.9 RBC 4.35 L Hgb 14.9 Hct 43.7 MCV 100.5 H MCH 34.3 H MCHC 34.1 RDW 13.2 Plt Count 125 L MPV 12.2 Immature Gran % (Auto) 0.8 H Neut % (Auto) 63.1 Lymph % (Auto) 21.7 [place] % (Auto) 10.5 Eos % (Auto) 3.4 Baso % (Auto) 0.5 Lymph # (Auto) 1.3 [place] # (Auto) 0.6 Eos # (Auto) 0.2 Baso # (Auto) 0.0 Abs Immat Gran (auto) 0.05 H Absolute Neuts (auto) 3.7 Absolute Nucleated RBC 0.000 Nucleated RBC % (auto) 0.0 Sodium 138 Potassium 3.2 L Chloride 96 Carbon Dioxide 28 Anion Gap 17 BUN 9 Creatinine 0.81 Estim Creat Clear Calc 107.5 Estimated GFR > 60 Random Glucose 75 Calcium 8.0 L Magnesium 1.6 Total Bilirubin 1.7 H Direct Bilirubin 0.7 H AST 53 H ALT 23 Alkaline Phosphatase 75 B-Natriuretic Peptide 1758 H Total Protein 5.1 L Albumin 3.2 L Discharge Plan Discharge Patient Disposition: Home, Self-Care Referrals: Mirta Dorantes DO [Primary Care Provider] - Discharge Medications: New furosemide 40 mg Tablet 40 mg PO DAILY Qty: 30 RF: 0 carvedilol 3.125 mg Tablet 3.125 mg PO BID Qty: 60 RF: 0 lisinopril 5 mg Tablet 5 mg PO DAILY Qty: 60 RF: 0 nicotine 7 mg/24 hr Patch 24 Hour 7 mg transdermal DAILY Qty: 14 RF: 0 Continued albuterol sulfate [ProAir HFA] 90 mcg/actuation HFA aerosol inhaler 2 puff inhalation Q4H PRN (Reason: Shortness Of Breath) RF: 0 budesonide-formoterol 160-4.5 mcg/actuation HFA aerosol inhaler 2 puff inhalation BID RF: 0 Incruse Ellipta 62.5 mcg/actuation blister with device 1 puff inhalation DAILY RF: 0 Discharge Orders: Discharge Order (Routine); Ordered 01/25/21 Ordered By: Gabriel Izquierdo Diet: advance to usual diet Activity on Discharge: As tolerated Stand Alone Forms: Patient Portal Discharge page Care Plan Goals: To stay healthy and out of the hospital. Health Concerns: Alcohol abuse and dependence Alcoholic Cardiomyopathy Plan of Treatment: Do not drink alcohol Follow up with your heart doctors at [facility]
--- NOTE | 2021-01-25 11:11 | MHC.CM.PN ---
Male 40 DX CHF. Pt is discharged today to home self-care. Transportation is being arranged by the Pt.
[2021-01-25 11:19] VITALS: BP 110/79; PULSE 97; RESP 20; TEMP 35.9; O2SAT 100
--- NOTE | 2021-01-25 13:00 | MHC.RECOVRN ---
40 year old male presented to [facility] ED on 01/23 due to 2 DAYS OF BILAT FEET SWELLING & TINGLING. RECENT L THIGH MUSCLE STRAIN. DENIES PAIN, BASILIA HX CLOTS, NOT CURRENTLY ON AC THERAPY. REFERRED HERE FOR DVT CLEARANCE BY PCP. STATES HE IS VERY ANXIOUS. HYPERTENSIVE, ASYMPTOMATIC AT TRIAGE per measuring clerk. Upon evaluation, pt was admitted due to acute CHF, alcohol withdrawal, hypomagnesemia, transaminitis, and hypertension.? T/w met with pt in 444 to discuss substance use. Pt reports alcohol use, 3-4 yellow beers plus 1/2 pint of liquor for 2-3 weeks. Pt reports this has been a reduction in use, prior to these 3-4 weeks, pt had been drinking an unknown amount for months. ? Pt appears uninterested in discussing recovery and states that goal is to go back to what I was doing but without the medical problems. Pt is not interested in resources or further discussion regarding substance use. Pt was given t/w card if at anytime he would like to discuss it further.
== END 2021-01-25 14:30 | disposition home or self-care (01) | DRG 194 ==
LOC: HO.ED 17:25 → HO.EDOVER 17:42 → HO.IMC 17:58
PROVIDERS: Nurse Practitioner Acute Care; Nurse Practitioner Primary Care; Admitting Provider Internal Medicine; Emergency Provider Emergency Medicine; PCP Internal Medicine; Visit Provider Family Medicine
DX: I11.0 Hypertensive heart disease with heart failure (principal); I42.6 Alcoholic cardiomyopathy; E83.42 Hypomagnesemia; K70.9 Alcoholic liver disease, unspecified; I50.21 Acute systolic (congestive) heart failure; E78.5 Hyperlipidemia, unspecified; F10.239 Alcohol dependence with withdrawal, unspecified; J45.909 Unspecified asthma, uncomplicated; I44.7 Left bundle-branch block, unspecified; F41.9 Anxiety disorder, unspecified; R74.01 Elevation of levels of liver transaminase levels; F17.210 Nicotine dependence, cigarettes, uncomplicated; Z71.6 Tobacco abuse counseling; Z20.822 Contact with and (suspected) exposure to COVID-19; Z88.6 Allergy status to analgesic agent; Z79.899 Other long term (current) drug therapy
CPT/HCPCS: 36415; 71045; 80048; 80053; 80076; 80307; 80320; 81001; 83735; 83880; 84484; 85025; 85610; 85730; 87635; 93005; 93306; 93970; 96365; 96366; 96372; 96375; 99285; J1200; J1940; J2060; J2560; J3475; Q9957

== ENCOUNTER 2022-03-29 17:49 | Emergency (ER) | payer OTHER, SELFPAY ==
[2022-03-29 19:28] VITALS: BP 144/110; PULSE 101; RESP 17; TEMP 35.6; O2SAT 98; BMI 25.7
--- NOTE | 2022-03-29 21:58 | ED.BACK ---
HPI - Back Pain/Injury General Chief Complaint: Back Pain/Injury Stated Complaint: persistent severe back pain, recent surgery Time Seen by Provider: 03/29/22 21:15 Source: patient Mode of arrival: EMS History of Present Illness HPI Narrative: 41-year-old male with chronic back pain and back surgery in 07/2017 presents with complaints of installing an AC unit approximately 1 week ago with resulting sharp pain and ?popping noise? and states that the pain has significantly worsened over the past week and radiates down the right leg but denies any saddle anesthesia or bowel/bladder dysfunction. In addition, patient denies any weakness to the lower extremities, denies any fevers/chills and is also noted to be a chronic alcohol drinker and reports that his last drink was at 16:00 this afternoon and he denies any current withdrawal symptoms. He denies any fevers, chills, injection drug use or recent procedures. Related Data Home Medications Medication Instructions Recorded Confirmed albuterol sulfate 90 mcg/actuation 2 puff INHALATION Q4H PRN 01/23/21 01/23/21 aerosol inhaler (ProAir HFA) budesonide-formoterol HFA 160 2 puff INHALATION BID 01/23/21 01/23/21 mcg-4.5 mcg/actuation aerosol inhaler umeclidinium 62.5 mcg/actuation 1 puff INHALATION DAILY 01/23/21 01/23/21 blister powder for inhalation (Incruse Ellipta) Previous Rx's Medication Instructions Recorded carvedilol 3.125 mg tablet 3.125 mg PO BID #60 tab 01/25/21 furosemide 40 mg tablet 40 mg PO DAILY #30 tab 01/25/21 lisinopril 5 mg tablet 5 mg PO DAILY #60 tab 01/25/21 nicotine 7 mg/24 hr daily 7 mg TRANSDERMAL DAILY #14 ea 01/25/21 transdermal patch ketorolac 10 mg tablet 10 mg PO Q6H PRN 5 Days #20 tab 03/29/22 Allergies Allergy/AdvReac Type Severity Reaction Status Date / Time melon Allergy Severe SWELLING Verified 01/23/21 14:28 soy [SOY] Allergy Severe RESPIRATORY Verified 01/23/21 14:28 PROBLEMS acetaminophen [From TYLENOL] Allergy Unknown UNKNOWN Verified 01/23/21 14:28 azithromycin [From ZITHROMAX] Allergy Unknown UNKNOWN Verified 01/23/21 14:28 nut - unspecified [nut] Allergy Unknown RESPIRATORY Verified 01/23/21 14:28 ISSUES SEAFOOD Allergy Severe SWELLING, Uncoded 01/23/21 14:28 RESPIRATORY PROBLEMS Review of Systems Review of Systems: Pertinent positives and negatives as stated in HPI 10 point review of systems is otherwise negative. [facility] Past Medical History Source: nursing notes reviewed Medical History Acute congestive heart failure Acute on chronic systolic (congestive) heart failure Alcohol abuse Alcohol abuse Alcoholic cardiomyopathy Asthma Cardiomyopathy Cardiomyopathy Essential hypertension Hyperlipidemia Hypertension LBBB (left bundle branch block) Social History Social History Household Members Other:: Nephew Housing: House Do you presently have visiting nurse or other home services: No Alcohol intake: current Alcohol intake frequency: a few times a week Alcohol type: beer and hard liquor Cigarette Packs Per Day: 2 Cigarettes Per Day: 40.0 Second Hand Smoke Exposure: No Substance Use Type: Marijuana Advance Directives: No Advance Directives Information Provided: Yes Physical Exam Vital Signs: Vital Signs: Last Vital Signs Temp 96.0 F L 03/29/22 19:28 Pulse 96 03/29/22 22:46 Resp 20 03/29/22 22:46 BP 125/86 03/29/22 22:46 Pulse Ox 95 03/29/22 22:46 BMI result Body Mass Index 25.7 VITAL SIGNS: Reviewed. GENERAL: Well developed, well nourished, in no acute distress. HEAD: Normocephalic/atraumatic EYES: PERRLA, EOMI EARS: Ext canals without abnormality, TMs non-bulging and non-erythematous NOSE: Nares patent bilateral OROPHARYNX: no oral lesions noted, posterior pharynx clear and non-erythematous without noted tonsillar enlargement/erythema/exudates NECK: Supple, no adenopathy LUNGS: Normal breath sounds. No adventitious sounds or accessory muscle use. SpO2<98> CARDIOVASCULAR: Regular rate and rhythm without noted murmurs, no JVD or lower extremity edema. ABDOMEN: Soft, non-tender, non-distended with bowel sounds BACK: Midline vertebral tenderness on palpation (patient endorses this is chronic), mild right paraspinal tenderness on palpation, DTRs intact MUSCULOSKELETAL: No tenderness, deformities, or effusions noted on gross inspection. EXTREMITIES: No cyanosis, clubbing or edema. SKIN: Inspection of the skin reveals no rashes, but diaphoresis noted NEUROLOGIC: Alert and oriented x 4. Strength and sensation to light touch were grossly intact x 4, tremulousness noted Course Course Course Narrative: 41-year-old male with history and clinical presentation of acute on chronic back pain, low clinical suspicion for cauda equina or spinal abscess. Will receive combination medications to include muscle relaxant but patient states he is allergic to Tylenol and on clinical evaluation appears to have mild withdrawal symptoms although he denies current alcohol withdrawal. Therefore, he will receive p.o. Ativan as he reports a not and so we allergy which conflicts with administration of Librium. Patient did not require the Ativan and on re-evaluation is much improved and ready for discharge. He is otherwise hemodynamically stable and will be getting transportation from a friend. Discharge Plan Discharge Clinical Impression: Back strain, Muscle spasm Patient Disposition: Home, Self-Care Instructions: Low Back Strain (ED), Muscle Spasm (ED), Lower Back Exercises (ED) Additional Instructions: 1. Resume all home medications as prescribed. 2. Lidocaine patch, apply to area of maximal tenderness as directed on the outside packaging. These are available [id number]. 3. Please follow-up with your primary care provider in the next 1-2 days for re-evaluation and further outpatient management with possible physical therapy. Return to the ER for worsening symptoms. Prescriptions: New ketorolac 10 mg tablet 10 mg PO Q6H PRN (Reason: pain) 5 Days Qty: 20 0RF Rx Instructions: Patient received Toradol in the emergency room. No Action albuterol sulfate [ProAir HFA] 90 mcg/actuation HFA aerosol inhaler 2 puff inhalation Q4H PRN (Reason: Shortness Of Breath) 0RF budesonide-formoterol 160-4.5 mcg/actuation HFA aerosol inhaler 2 puff inhalation BID 0RF Incruse Ellipta 62.5 mcg/actuation blister with device 1 puff inhalation DAILY 0RF furosemide 40 mg Tablet 40 mg PO DAILY Qty: 30 0RF Protocol: Hold for SBP< HOLD for SBP < : 90 carvedilol 3.125 mg Tablet 3.125 mg PO BID Qty: 60 0RF Protocol: Hold for SBP/HR < HOLD for SBP < : 90 HOLD for HR < : 60 lisinopril 5 mg Tablet 5 mg PO DAILY Qty: 60 0RF Protocol: Hold for SBP< HOLD for SBP < : 90 nicotine 7 mg/24 hr Patch 24 Hour 7 mg transdermal DAILY Qty: 14 0RF Referrals: Tia Simpson MD [Primary Care Provider] -
[2022-03-29] MEDS: Lidocaine 4 % Patch ADH..PATCH 1 PATCH TRANSDERMA (22:08)
[2022-03-29] MEDS: TiZANidine HCL 4 MG TABLET PO (22:10)
[2022-03-29] MEDS: Ketorolac Tromethamine 15 MG/ML VIAL IM (22:11)
[2022-03-29 22:46] VITALS: BP 125/86; PULSE 96; RESP 20; O2SAT 95
== END 2022-03-29 23:32 | disposition home or self-care (01) ==
PROVIDERS: Emergency Provider Student in an Organized Health Care Education/Training Program; PCP Internal Medicine
DX: S39.012A Strain of muscle, fascia and tendon of lower back, initial encounter (principal); X50.0XXA Overexertion from strenuous movement or load, initial encounter; M62.830 Muscle spasm of back; E78.5 Hyperlipidemia, unspecified; F10.10 Alcohol abuse, uncomplicated; Y90.9 Presence of alcohol in blood, level not specified; K70.9 Alcoholic liver disease, unspecified; F17.200 Nicotine dependence, unspecified, uncomplicated; Y93.89 Activity, other specified; Y92.019 Unspecified place in single-family (private) house as the place of occurrence of the external cause; Y99.9 Unspecified external cause status
CPT/HCPCS: 96372; 99283; 99284; J1885

== ENCOUNTER 2024-06-16 10:26 | Outpatient (AMB) | payer OTHER, SELFPAY ==
--- NOTE | 2024-06-16 10:34 | MHC.OFFVIS ---
Vital Signs 06/16/24 10:36 Height 5 ft 5 in Weight 155 lb 2 oz BMI 25.8 BP 120/88 Blood Pressure Location Lt brachial Position Sitting Respiration 16 Pulse 99 Pulse Source Pulse Oximeter Pulse Oximetry (%) 99 Oxygen Delivery Method Room Air Intake Visit Reasons: ENP-Chronic headaches/peripheral neuropathy Intake Note: Pt presents to the office for new pt consultation for chronic headaches. Answering Service Telephone Operator Required: No Allergies melon Allergy (Severe, Verified 06/16/24 10:36) SWELLING soy [SOY] Allergy (Severe, Verified 06/16/24 10:36) RESPIRATORY PROBLEMS acetaminophen [From TYLENOL] Allergy (Unknown, Verified 06/16/24 10:36) UNKNOWN azithromycin [From ZITHROMAX] Allergy (Unknown, Verified 06/16/24 10:36) UNKNOWN nut - unspecified [nut] Allergy (Unknown, Verified 06/16/24 10:36) RESPIRATORY ISSUES SEAFOOD Allergy (Severe, Uncoded 06/16/24 10:36) SWELLING, RESPIRATORY PROBLEMS Medication List - Last Reconciled 06/16/24 by RIP Ho albuterol sulfate 90 mcg/actuation (ProAir HFA) 2 puffs inhalation Q4H PRN budesonide-formoterol 160-4.5 mcg/actuation 2 puffs inhalation BID furosemide 40 mg See Protocol PO DAILY gabapentin 600 mg PO DAILY lisinopril 5 mg See Protocol PO DAILY metoprolol tartrate 50 mg PO DAILY nicotine 7 mg transdermal DAILY umeclidinium 62.5 mcg/actuation (Incruse Ellipta) 1 puff inhalation DAILY HPI Comments Details: Right-handed 44-yr-old male presents for new pt evaluation for chronic headache disorder and neuropathy for transfer of care. Pt was previously f/b Dr Rowe, neuro. Pt states however that headache is not his primary concern, but he has many other issues at this time. PMH includes: CHF, alcoholic cardiomyopathy, HLD, s/p AICD implant, CAD, HTN, depression, asthma/COPD, macrocytosis, chronic pain, panic attacks, alcohol dependence, vit D def, MISAEL w/ AHI 27 (OA 21, CA 5, mixed apnea 1) on 2018 HST, possible fibromyalgia. Pt reports states he has frequent nausea, photophobia, poor balance, poor coordination, wide spread pain, episodes of wide spread hot flashes/sweating, and some headaches. He feels that something is wrong - that something needs to change . He states he has had these symptoms more moderately over the past decade, and have worsened more recently. However, he denies any initial or more recent triggers or precipitating causes that may have triggered why he is overall feeling worse. He also has numbness/tingling, stabbing pains, pinching, bee sting sensations, burning pains in any part of the body, comes and goes, can be really bad , occurs w/ rest or activity. His PCP recently started him on Cymbalta 20mg to 30mg x's approx 6 weeks, initially was helping but effect has seemed to wane. He has chronic throbbing neck pain, and radiating low back pain into both legs- has had lumbar surgery (10 yrs ago). He can feel the ground when walking. He falls a couple of times a week- usually triggered by sensation of stabbing, vision turns pink, and he wakes up on the floor- these started yrs ago. He denies h/o seizures. He denies h/o EMG/NCS or rheumatology consult. He has been smelling things that are not present- this is a newer symptom. He also notes frequent nausea, and exertion triggering need to have BM- states more so in the last year. 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 He also notes tremors w/ rest or action- notices more in his right dominant hand. States weird electrical signals- like he will push a button 3 times instead of once. His arms or legs will jerk (may throw something) at rest or w/ action. He has leg cramps. He does have a history of sleep apnea, however he never started PAP tx as he states he does not sleep. Sometimes he will not sleep for a week- maybe just sleep an hour or two here or there. States this is a lifelong problem. His last HST sleep study was > 5 yrs ago. He states he has left sided headache, a stabbing pain in the eye, photophobia, phonophobia, nausea. The attack lasts hrs to days. He cannot say specific number of headache days, but endorses having more headaches days than not. He currently is having an attack that started last time. Denies any specific time for day of these attacks. Denies specific triggers. He does also report a history of migraine- where he would be completely incapacitated. He cannot recall if the headache was also left-sided. Current acute headache medication use/interventions: May take a second dose of ASA 81mg or takes Ibuprofen 600mg for more severe migraine. Current preventative medication use: denies Non-pharmacological interventions: does use [employer] blue light blocking glasses He has hereditary left eyelid droop. Prone to puffy eyes d/t allergies and fluid retention. He has taken risperdal, lamotrigine for mood d/o. States he was tried on many different medications- unsure exactly which. He has had a psychiatric hospitalizations- over 10 yrs ago. Smokes 1 ppd, alcohol 3-5 per day (12 oz yellow beer or cocktail w/ 50ml liquor). No longer using cannabis. His last head imaging was in 2017. [facility] Medical History (Updated 06/20/24 @ 12:56 by RIP Ho) Elevated MCV LBBB (left bundle branch block) Essential hypertension Acute on chronic systolic (congestive) heart failure Alcoholic cardiomyopathy Alcohol abuse Hyperlipidemia Hypertension Alcohol abuse Acute congestive heart failure Cardiomyopathy Cardiomyopathy Asthma Surgical History (Updated 06/16/24 @ 10:44 by Clare Christiansen CMA) H/O discectomy Social History Household Members Other:: Nephew Housing: House Do you presently have visiting nurse or other home services: No Alcohol intake: current Alcohol intake frequency: a few times a week Alcohol type: beer and hard liquor Cigarette Packs Per Day: 2 Cigarettes Per Day: 40.0 Second Hand Smoke Exposure: No Substance Use Type: Marijuana Physical Exam Vital Signs: Last Vital Signs Pulse 99 06/16/24 10:36 Resp 16 06/16/24 10:36 BP 120/88 06/16/24 10:36 Pulse Ox 99 06/16/24 10:36 Oxygen Delivery Method Room Air 06/16/24 10:36 BMI result Body Mass Index 25.8 Const Other: During visit, pt became diffusely warm, diaphoretic (caused shirt and jeans to become moist), which self-subsided General: no acute distress Orientation/consciousness: patient oriented x3 Resp Effort & Inspection: normal respiratory effort and able to speak in complete sentences Neuro Other: Mild frontal scalp tenderness. Right eye ptosis- states life long. LUE decreased DEBORAH. Mild RUE elbow tightness Left arm no tone, but feels heayy Able to stand w/o using arms, decreased right arm swing, otherwise steady gait. General: patient oriented x3 Cranial nerves: Yes CN's II-XII intact bilaterally Cognition (Neuro): normal cognition Gait exam (Neuro): Normal gait present Motor exam (neuro): 5/5 motor strength present throughout Deep tendon reflexes (DTR's): Right triceps reflex intensity grade: 2+, Left triceps reflex intensity grade: 2+, Rt Biceps (C5, C6): 2+, Left biceps reflex intensity grade: 2+, Right brachioradialis reflex intensity grade: 2+, Left brachioradialis reflex intensity grade: 2+, Right patellar reflex intensity grade: 2+ and Left patellar reflex intensity grade: 2+ Coordination: [id number] test normal and Romberg test negative Pupils: Normal pupillary reactivity/response: bilateral Psych Appearance: grossly normal Mental Status: mental status grossly normal Speech and movement: Clear speech present Affect: normal affect Attitude: cooperative Thought process: Normal thought process present Assessment & Plan Assessment & Plan (1) Paresthesia: Code(s): R20.2 - Paresthesia of skin Category: Medical (2) Hot flashes: Code(s): R23.2 - Flushing Category: Medical (3) Nausea: Code(s): R11.0 - Nausea Category: Medical (4) Chronic migraine without aura: Code(s): G43.709 - Chronic migraine without aura, not intractable, without status migrainosus Category: Medical Plan Pt has multiple s/s, which may be multi-factorial related to CV and pulmonary dz, current alcohol dependence, chronic migraine, untreated sleep apnea. Initiate work-up to assess for common etiologies. Pt would benefit from smoking and alcohol cessation- we can refer him to [facility] when pt is ready. Will request recent labs from PCP, upon review will order labs for paresthesias, pains, hot flashes, nausea. Pt advised to undergo: In-lab PSG to assess parasomnias and status of sleep apnea EEG- as pt reporting episodes of olfactory hallucinations and involuntary jerking movements. Brain MRI w/o BUE & BLE EMG/NCS For acute migraine headache treatment: Trial Ubrogepant (Ubrelvy) 100mg tab, 1/2 - 1 tab (50-100mg) at onset of headache, may repeat in 2 hours. Max of 2 tabs (200mg) per 24 hours. May adjunct with OTC Tylenol 650mg q 4 hours. Previous acute migraine medication trials: Imitrex- ? effect Acute migraine medication contraindications: All triptans and DHE d/t CHF dx For headache prevention medication: Start Riboflavin 400mg qam Start Magnesium 400mg qhs On Metoprolol 50mg- for CV tx. Previous migraine prevention medication trials: Amitriptyline: caused excessive sleepiness Prednisone: helps a lot for pain, allergies, asthma. Migraine prevention medication contraindications: Caution w/ TCAs d/t CHF dx. Pt to follow-up in 3 months or sooner prn. Labs rec'd from PCP office- Dec 2023 CBC- WBC 6, RBC 4.8, Hgb 15.9, Hct 15.9, MCV 101.3 H, MCHgb 33.5 H, Mean cor Hgb con 33.1, Red cell dis 13.4, Plt count 156, Mean platelt volume 11.8 H CMP- WNL ESR-6 RONY- neg RF < 10, Uric acid 6.6 NL, Lyme- equivicol, IgG neg, IgM positive (Lyme positive 2 yrs ago)- per notes attached to lab- pt was given course of Doxy. TSH 3.56 Mag 1.8 L, CHO- 252 H TRG 80 HDL 75 LDL 161 TC-HDLC ratio 3.4 HgA1C 4.9 Vit D 39 B12 686 Will order f/u labs to assess for underlying etiologies. Orders: Orders Methylmalonic Acid Today E78.5 - Hyperlipidemia, unspecified, E83.42 - Hypomagnesemia, I10 - Essential (primary) hypertension, I50.21 - Acute systolic (congestive) heart failure, K70.9 - Alcoholic liver disease, unspecified, R20.2 - Paresthesia of skin, R23.2 - Flushing, R71.8 - Other abnormality of red blood cells Vitamin B1 Today E78.5 - Hyperlipidemia, unspecified, E83.42 - Hypomagnesemia, I10 - Essential (primary) hypertension, I50.21 - Acute systolic (congestive) heart failure, K70.9 - Alcoholic liver disease, unspecified, R20.2 - Paresthesia of skin, R23.2 - Flushing, R71.8 - Other abnormality of red blood cells NE nerve conduction velocity Today E78.5 - Hyperlipidemia, unspecified, E83.42 - Hypomagnesemia, I10 - Essential (primary) hypertension, I50.21 - Acute systolic (congestive) heart failure, K70.9 - Alcoholic liver disease, unspecified, R20.2 - Paresthesia of skin, R23.2 - Flushing, R71.8 - Other abnormality of red blood cells Complete Blood Count Auto Diff Today E78.5 - Hyperlipidemia, unspecified, E83.42 - Hypomagnesemia, I10 - Essential (primary) hypertension, I50.21 - Acute systolic (congestive) heart failure, K70.9 - Alcoholic liver disease, unspecified, R20.2 - Paresthesia of skin, R23.2 - Flushing, R71.8 - Other abnormality of red blood cells Comprehensive Met. Panel Today E78.5 - Hyperlipidemia, unspecified, E83.42 - Hypomagnesemia, I10 - Essential (primary) hypertension, I50.21 - Acute systolic (congestive) heart failure, K70.9 - Alcoholic liver disease, unspecified, R20.2 - Paresthesia of skin, R23.2 - Flushing, R71.8 - Other abnormality of red blood cells Vitamin B12 and Folate Today E78.5 - Hyperlipidemia, unspecified, E83.42 - Hypomagnesemia, I10 - Essential (primary) hypertension, I50.21 - Acute systolic (congestive) heart failure, K70.9 - Alcoholic liver disease, unspecified, R20.2 - Paresthesia of skin, R23.2 - Flushing, R71.8 - Other abnormality of red blood cells Homocysteine Today E78.5 - Hyperlipidemia, unspecified, E83.42 - Hypomagnesemia, I10 - Essential (primary) hypertension, I50.21 - Acute systolic (congestive) heart failure, K70.9 - Alcoholic liver disease, unspecified, R20.2 - Paresthesia of skin, R23.2 - Flushing, R71.8 - Other abnormality of red blood cells IRON PROFILE Today E78.5 - Hyperlipidemia, unspecified, E83.42 - Hypomagnesemia, I10 - Essential (primary) hypertension, I50.21 - Acute systolic (congestive) heart failure, K70.9 - Alcoholic liver disease, unspecified, R20.2 - Paresthesia of skin, R23.2 - Flushing, R71.8 - Other abnormality of red blood cells Creatine Kinase Total Today E78.5 - Hyperlipidemia, unspecified, E83.42 - Hypomagnesemia, I10 - Essential (primary) hypertension, I50.21 - Acute systolic (congestive) heart failure, K70.9 - Alcoholic liver disease, unspecified, R20.2 - Paresthesia of skin, R23.2 - Flushing, R71.8 - Other abnormality of red blood cells Magnesium Today E78.5 - Hyperlipidemia, unspecified, E83.42 - Hypomagnesemia, I10 - Essential (primary) hypertension, I50.21 - Acute systolic (congestive) heart failure, K70.9 - Alcoholic liver disease, unspecified, R20.2 - Paresthesia of skin, R23.2 - Flushing, R71.8 - Other abnormality of red blood cells NE electromyogram (EMG) Today E78.5 - Hyperlipidemia, unspecified, E83.42 - Hypomagnesemia, I10 - Essential (primary) hypertension, I50.21 - Acute systolic (congestive) heart failure, K70.9 - Alcoholic liver disease, unspecified, R20.2 - Paresthesia of skin, R23.2 - Flushing, R71.8 - Other abnormality of red blood cells Ammonia Today K70.9 - Alcoholic liver disease, unspecified, R11.0 - Nausea, R20.2 - Paresthesia of skin, R23.2 - Flushing Medications: New ubrogepant (Ubrelvy) take at onset of migraine, may repeat in 2hrs (may take w/ Ibuprofen) 50 - 100 mg (0.5 - 1 x 100 mg) PO ONCE 30 days PRN 16 tabs 3RF migraine headache riboflavin (vitamin B2) 400 mg PO DAILY 30 days 30 tabs 6RF magnesium oxide may hold for loose stools 400 mg PO BEDTIME 30 days 30 tabs 6RF Coding Level of Care Code New Pt Level 4 (81829) Diagnoses Paresthesia R20.2 Hot flashes R23.2 Nausea R11.0 Chronic migraine without aura G43.709
[2024-06-16 10:36] VITALS: BP 120/88; PULSE 99; RESP 16; O2SAT 99; BMI 25.8
== END 2024-06-16 11:54 | disposition home or self-care (01) ==
PROVIDERS: PCP Internal Medicine; Visit Provider Nurse Practitioner Family
DX: R20.2 Paresthesia of skin (principal); R23.2 Flushing; R11.0 Nausea; G43.709 Chronic migraine without aura, not intractable, without status migrainosus
CPT/HCPCS: 99204

== ENCOUNTER → 2024-06-16 10:26 | Outpatient (BNVA) | payer OTHER, SELFPAY | PROVIDERS: PCP Internal Medicine; Visit Provider Nurse Practitioner Family | DX: G43.709 Chronic migraine without aura, not intractable, without status migrainosus (principal); R11.0 Nausea; G62.9 Polyneuropathy, unspecified; R20.2 Paresthesia of skin; R23.2 Flushing | CPT/HCPCS: 99202 ==

== ENCOUNTER 2024-07-10 14:14 | Outpatient (REF) | payer OTHER, SELFPAY ==
--- NOTE | 2024-07-10 14:19 | EMG_ITS ---
Chief complaint: Random paresthesias upper and lower extremities, neck pain, back pain History of alcohol dependence, alcohol cardiomyopathy, AICD Reason for referral: Evaluate for neuropathy Referred by: Diya Lincoln NP Procedure done: Bilateral upper and lower extremity NCS/EMG Precautions and/or limitations: AICD The limb temperature was monitored continuously and remained between 32-36 degrees C during the performance of the NCS. Nerve Conduction Studies Anti Sensory Summary Table ?Stim Site NR Onset (ms) Norm Onset (ms) Peak (ms) Norm Peak (ms) O-P Amp (?V) Norm O-P Amp Site1 Site2 Delta-0 (ms) Dist (cm) Ziyad (m/s) Norm Ziyad (m/s) Left Median Anti Sensory (2nd Digit) Wrist ? 2.7 3.4 <3.6 24.2 >10 Wrist 2nd Digit 2.7 14.0 52 Right Median Anti Sensory (2nd Digit) Wrist ? 2.6 3.3 <3.6 20.6 >10 Wrist 2nd Digit 2.6 14.0 54 Left Sural Anti Sensory (Lat Mall) Calf ? 2.8 3.5 <4.0 6.6 >5.0 Calf Lat Mall 2.8 14.0 50 Right Sural Anti Sensory (Lat Mall) Calf ? 3.3 3.9 <4.0 8.3 >5.0 Calf Lat Mall 3.3 14.0 42 Left Ulnar Anti Sensory (5th Digit) Wrist ? 2.4 3.3 <3.7 24.7 >15.0 Wrist 5th Digit 2.4 14.0 58 Right Ulnar Anti Sensory (5th Digit) Wrist ? 1.1 3.0 <3.7 19.6 >15.0 Wrist 5th Digit 1.1 14.0 127 Motor Summary Table ?Stim Site NR Onset (ms) Norm Onset (ms) O-P Amp (mV) Norm O-P Amp iAmp (mV) Amp (1st) (%) Site1 Site2 Delta-0 (ms) Dist (cm) Ziyad (m/s) Norm Ziyad (m/s) Left Median Motor (Abd Poll Brev) Wrist ? 3.9 <3.9 5.2 >4.5 6.1 100.0 Elbow Wrist 3.8 20.5 54 >45 Elbow ? 7.7 2.8 3.5 53.8 Right Median Motor (Abd Poll Brev) Wrist ? 3.8 <3.9 8.8 >4.5 9.8 100.0 Elbow Wrist 3.5 20.5 59 >45 Elbow ? 7.3 8.9 10.1 101.1 Right Peroneal Motor (Ext Dig Brev) Ankle NR <4.0 >2.5 Ankle Ext Dig Brev 0.0 B Fib ? 10.4 3.6 4.2 B Fib Ankle 32.0 >40 Poplt ? 11.3 3.5 4.1 Poplt B Fib 0.9 5.0 56 >40 Left Tibial Motor (Abd Robertson Brev) Ankle ? 4.0 <5 5.1 >2.5 7.3 100.0 Ankle Abd Robertson Brev 4.0 0.0 Knee ? 11.2 4.2 5.7 82.4 Knee Ankle 7.2 37.0 51 >40 Right Tibial Motor (Abd Robertson Brev) Ankle ? 3.8 <5 10.8 >2.5 13.6 100.0 Ankle Abd Robertson Brev 3.8 0.0 Knee ? 12.3 4.6 6.0 42.6 Knee Ankle 8.5 38.0 45 >40 Left Ulnar Motor (Abd Dig Minimi) Wrist ? 3.0 <3.0 12.7 >5 14.7 100.0 B Elbow Wrist 2.9 17.0 59 >45 B Elbow ? 5.9 12.3 14.4 96.9 A Elbow B Elbow 1.7 10.0 59 >45 A Elbow ? 7.6 12.0 14.2 94.5 Right Ulnar Motor (Abd Dig Minimi) Wrist ? 2.7 <3.0 11.3 >5 13.4 100.0 B Elbow Wrist 3.0 19.5 65 >45 B Elbow ? 5.7 11.5 14.1 101.8 A Elbow B Elbow 1.6 10.0 63 >45 A Elbow ? 7.3 11.1 13.6 98.2 EMG ?Side Muscle Nerve Root Ins Act Fibs Psw Amp Dur Poly Recrt Int Pat Comment Right 1stDorInt Ulnar C8-T1 Nml Nml Nml Nml Nml 0 Nml Complete Right FlexCarRad Median C6-7 Nml Nml Nml Nml Nml 0 Nml Complete Right Biceps Musculocut C5-6 Nml Nml Nml Nml Nml 0 Nml Complete Right Triceps Radial C6-7-8 Nml Nml Nml Nml Nml 0 Nml Complete Right Deltoid Axillary C5-6 Nml Nml Nml Nml Nml 0 Nml Complete Right AbdHallucis MedPlantar S1-2 Nml Nml Nml Nml Nml 0 Nml Complete Right AntTibialis Dp Br Peron L4-5 Nml Nml Nml Nml Nml 0 Nml Complete Right PostTibialis Tibial L5, S1 Nml Nml Nml Nml Nml 0 Nml Complete Right MedGastroc Tibial S1-2 Nml Nml Nml Nml Nml 0 Nml Complete Right VastusMed Femoral L2-4 Nml Nml Nml Nml Nml 0 Nml Complete Left AbdHallucis MedPlantar S1-2 Nml Nml Nml Nml Nml 0 Nml Complete Left AntTibialis Dp Br Peron L4-5 Nml Nml Nml Nml Nml 0 Nml Complete Left PostTibialis Tibial L5, S1 Nml Nml Nml Nml Nml 0 Nml Complete Left MedGastroc Tibial S1-2 Nml Nml Nml Nml Nml 0 Nml Complete Left VastusMed Femoral L2-4 Nml Nml Nml Nml Nml 0 Nml Complete Paraspinal EMG ?Side Muscle Nerve Root Ins Act Fibs Psw Comment Right Cervical Upper Rami Nml Nml Nml Right Cervical Mid Rami Nml Nml Nml Right Cervical Lower Rami Nml Nml Nml Right Lumbar Upper Rami Nml Nml Nml Right Lumbar Mid Rami Nml Nml Nml Right Lumbar Lower Rami Nml Nml Nml Left Lumbar Upper Rami Nml Nml Nml Left Lumbar Mid Rami Nml Nml Nml Left Lumbar Lower Rami Nml Nml Nml FINDINGS: Could not get response distally on right peroneal nerve, suspect because I could not increase stimulation due to patient having an AICD. No conduction block seen across fibular neck. All other nerves tested were within normal. Concentric needle EMG was performed in selected muscles of the bilateral lower extremities, right upper extremity, cervical and lumbar paraspinals. Study did not reveal signs of electric abnormalities as shown in the table above. IMPRESSION: 1. This is an essentially normal study. 2. There is no electrodiagnostic evidence for median neuropathy, ulnar neuropathy, brachial plexopathy, cervical radiculopathy, peroneal neuropathy at fibular neck tibial neuropathy. lumbosacral plexopathy, lumbar radiculopathy, or peripheral neuropathy. Thank you for your kind referral. Kamryn Ni MD, KEYSHAWN Board Certified, [place] Board [employer] and Rehabilitation (ABPMR) Board Certified, [place] Board [employer] Electrodiagnostic [employer] (ABEM) CODIN 25518 x 3 MTDD
[2024-07-10 15:07] LABS: MANUAL DIFF FLAG NO
[2024-07-10 15:16] LABS: Ammonia 26 umol/L (13-55)
[2024-07-10 15:53] LABS: Basophils Absolute Auto 0.1 X10*3/uL (0.0-0.2); Basophils Percent Auto 0.8 % (0-2); Eosinophils Absolute Auto 0.2 X10*3/uL (0.0-0.4); Eosinophils Percent Auto 2.7 % (0-4); Hemoglobin 16.1 g/dl (14.0-18.0); Imm Gran Abs Auto 0.01 X10*3/uL (0.00-0.03); Imm Gran Pct Auto 0.1 % (0.0-0.4); Lymphocytes Percent Auto 27.4 % (20-40); Mean Corpuscular HGB Conc 33.5 g/dl (31.0-36.0); Mean Corpuscular Hemoglobin 34.4 pg (27.0-33.0); Mean Corpuscular Volume 102.6 fL (80.0-98.0); Mean Platelet Volume 11.4 fL (9.4-12.4); Monocytes Absolute Auto 0.7 X10*3/uL (0.1-1.2); Neutrophils Absolute Auto 4.2 x10*3/uL (2.0-8.3); Platelet Count 187 X10*3/uL (160-400); Red Blood Count 4.68 X10*6/uL (4.60-5.80); Red Cell Distribution Width 14.3 % (11.0-16.0); White Blood Count 7.1 X10*3/uL (4.8-10.8)
[2024-07-10 16:39] LABS: Alanine Aminotransferase 28 U/L (0-40); Albumin Level 4.3 g/dL (3.5-5.0); Alkaline Phosphatase 69 U/L (39-117); Anion Gap 14 (12-20); Aspartate Amino Transferase 37 U/L (5-37); Bilirubin Total 1.8 mg/dL (0.0-1.0); Blood Urea Nitrogen 13 mg/dL (9-16); Carbon Dioxide 26 mmol/L (22-29); Chloride 106 mmol/L (96-108); Estimated Glomerular Filt Rate > 60; Glucose Random 82 mg/dL (60-115); Iron 151 mcg/dL (45-160); Magnesium 1.9 mg/dL (1.6-2.6); Percent Iron Saturation 37 % (15-50); Potassium 4.2 mmol/L (3.3-5.1); Sodium 142 mmol/L (135-145); Total Iron Binding Capacity 407 mcg/dL (228-428); Total Protein 6.9 g/dL (6.5-8.0); Unsaturated Iron Binding 256 ug/dL
[2024-07-10 17:13] LABS: Folate 12.1 ng/mL (> or = 4.0); Vitamin B12 813 pg/mL (200-900)
[2024-07-13 17:18] LABS: Homocysteine 15.6 umol/L (<11.4)
[2024-07-15 20:28] LABS: Methylmalonic Acid 191 nmol/L (55-335)
[2024-07-27 16:35] LABS: Vitamin B1 184
== END 2024-07-10 14:15 | disposition home or self-care (01) ==
LOC: HO.NEURO 14:14
PROVIDERS: PCP Internal Medicine; Visit Provider Nurse Practitioner Family
DX: R20.2 Paresthesia of skin (principal); R23.2 Flushing; R52 Pain, unspecified; E83.42 Hypomagnesemia; K70.9 Alcoholic liver disease, unspecified; I50.21 Acute systolic (congestive) heart failure; E78.5 Hyperlipidemia, unspecified; I10 Essential (primary) hypertension; R71.8 Other abnormality of red blood cells; R11.0 Nausea
CPT/HCPCS: 36415; 80053; 82140; 82550; 82607; 82746; 83090; 83540; 83735; 83921; 84425; 85025; 95886; 95913

== ENCOUNTER → 2024-07-10 14:19 | Outpatient (BNV) | payer OTHER, SELFPAY | PROVIDERS: PCP Internal Medicine; Visit Provider Physical Medicine & Rehabilitation | DX: R20.2 Paresthesia of skin (principal); R20.0 Anesthesia of skin | CPT/HCPCS: 95886; 95913 ==

== ENCOUNTER 2024-07-24 14:56 | Emergency (ER) | payer OTHER, SELFPAY ==
[2024-07-24] VITALS (17 sets, daily range): BP systolic 81–139; BP diastolic 51–95; PULSE 104–166; RESP 18–25; TEMP 37.7–38.3; O2SAT 86–100; BMI 26.8
--- NOTE | ~2024-07-24 | XR_ITS ---
EXAMINATION: XR CHEST CLINICAL INFORMATION: Shortness of breath. History of trauma. COMPARISON: January 23, 2021 TECHNIQUE: Frontal view of the chest was obtained. FINDINGS: There is cephalization of the pulmonary vasculature. Interstitial edema. There is central bronchial wall thickening. Cardiac silhouette is enlarged but stable. No significant pleural effusion. Left chest wall permanent pacing device with leads in satisfactory position. XR/XR chest 1V IMPRESSION: Pulmonary edema. Electronically signed by: Tyron Quiroz MD 07/24/2024 03:41 PM EDT
[2024-07-24] MEDS: Furosemide 100 MG/10 ML VIAL 80 MG IVPUSH (15:00)
--- NOTE | 2024-07-24 15:07 | ED.GENADULT ---
HPI - General Adult General Chief complaint: Dyspnea Stated complaint: Asthma, possible CHF, duo neb & nitro given Time Seen by Provider: 07/24/24 14:58 Source: patient Mode of arrival: ambulatory Limitations: other (Speaking in short sentences due to acute hypoxic respiratory failure) History of Present Illness ED Provider: Sulaiman MATTSON HPI narrative: This is a 44-year-old male history of hyperlipidemia, hypertension, acute systolic heart failure, alcohol withdrawal, alcohol use disorder presenting with acute shortness of breath worsening over the past day. Denies recent illness. Denies blood thinner. Was found outside stop and shop patient in acute respiratory distress on arrival struggling to speak in full sentences. Poor historian. 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 Also received a duoneb Related Data Home Medications ?Medication ?Instructions ?Recorded ?Confirmed albuterol sulfate 90 mcg/actuation 2 puff inhalation Q4H PRN 01/23/21 06/16/24 aerosol inhaler (ProAir HFA) Shortness Of Breath budesonide-formoterol HFA 160 2 puff inhalation BID 01/23/21 06/16/24 mcg-4.5 mcg/actuation aerosol inhaler umeclidinium 62.5 mcg/actuation 1 puff inhalation DAILY 01/23/21 06/16/24 blister powder for inhalation (Incruse Ellipta) gabapentin 600 mg tablet 600 mg PO DAILY 06/16/24 06/16/24 metoprolol tartrate 50 mg tablet 50 mg PO DAILY 06/16/24 06/16/24 Previous Rx's ?Medication ?Instructions ?Recorded furosemide 40 mg tablet 40 mg PO DAILY #30 tabs 01/25/21 lisinopril 5 mg tablet 5 mg PO DAILY #60 tabs 01/25/21 nicotine 7 mg/24 hr daily 7 mg transdermal DAILY #14 ea 01/25/21 transdermal patch magnesium oxide 400 mg (241.3 mg 400 mg PO BEDTIME 30 days #30 tabs 06/16/24 magnesium) tablet riboflavin (vitamin B2) 400 mg 400 mg PO DAILY 30 days #30 tabs 06/16/24 tablet ubrogepant 100 mg tablet (Ubrelvy) 50 - 100 mg (0.5 - 1 x 100 mg) PO 06/16/24 ONCE PRN migraine headache 30 days #16 tabs Allergies Allergy/AdvReac Type Severity Reaction Status Date / Time melon Allergy Severe SWELLING Verified 07/24/24 15:37 soy [SOY] Allergy Severe RESPIRATORY Verified 07/24/24 15:37 PROBLEMS acetaminophen [From TYLENOL] Allergy Unknown UNKNOWN Verified 07/24/24 15:37 azithromycin [From ZITHROMAX] Allergy Unknown UNKNOWN Verified 07/24/24 15:37 nut - unspecified [nut] Allergy Unknown RESPIRATORY Verified 07/24/24 15:37 ISSUES SEAFOOD Allergy Severe SWELLING, Uncoded 07/24/24 15:37 RESPIRATORY PROBLEMS Review of Systems Review of Systems: Yes all other systems are reviewed and are negative FOR[facility]LY [facility], [facility] Past Medical History Attestation statement: The following information was validated with the patient. Source: old records reviewed and nursing notes reviewed Medical History (Updated 07/24/24 @ 17:32 by ELI Blank) Elevated MCV LBBB (left bundle branch block) Essential hypertension Acute on chronic systolic (congestive) heart failure Alcoholic cardiomyopathy Alcohol abuse Hyperlipidemia Hypertension Alcohol abuse Acute congestive heart failure Cardiomyopathy Cardiomyopathy Asthma Surgical History (Updated 06/16/24 @ 10:44 by Clare Christiansen CMA) H/O discectomy Social History Social History Household Members Other:: Nephew Housing: House Do you presently have visiting nurse or other home services: No Alcohol intake: current Alcohol intake frequency: a few times a week Alcohol type: beer and hard liquor Cigarette Packs Per Day: 2 Cigarettes Per Day: 40.0 Second Hand Smoke Exposure: No Substance Use Type: Marijuana Advance Directives: No Advance Directives Information Provided: No Physical Exam ED Vital Signs: Vital Signs - 24 hr 07/24/24 15:28 07/24/24 15:41 07/24/24 15:46 Temperature Pulse Rate 163 H 164 H Respiratory Rate 18 Blood Pressure 139/94 H 122/89 Pulse Oximetry 86 L Oxygen Delivery Method Fraction of Inspired Oxygen 100 07/24/24 16:33 07/24/24 16:37 07/24/24 16:47 Temperature Pulse Rate 115 H 112 H 113 H Respiratory Rate Blood Pressure 95/67 92/65 87/57 L Pulse Oximetry Oxygen Delivery Method Fraction of Inspired Oxygen 07/24/24 16:50 07/24/24 16:54 07/24/24 16:57 Temperature 100.9 F H Pulse Rate 114 H 115 H 116 H Respiratory Rate 25 H Blood Pressure 83/51 L 81/51 L 87/62 L Pulse Oximetry 95 Oxygen Delivery Method Mechanical Ventilation Fraction of Inspired Oxygen 07/24/24 17:00 07/24/24 17:10 07/24/24 17:25 Temperature 100.4 F 100.2 F Pulse Rate 115 H 109 H 104 H Respiratory Rate 20 20 Blood Pressure 87/62 L 108/82 120/92 H Pulse Oximetry 93 93 Oxygen Delivery Method Mechanical Ventilation Mechanical Ventilation Fraction of Inspired Oxygen 07/24/24 17:28 Temperature 100 F Pulse Rate 105 H Respiratory Rate 20 Blood Pressure 120/92 H Pulse Oximetry 96 Oxygen Delivery Method Mechanical Ventilation Fraction of Inspired Oxygen BMI result Body Mass Index 26.8 hypoxia, tachycardia, tachypnea Appearance: Alert.? Oriented X3.? + acute distress.?+ diaphoretic Head: Normocephalic, atraumatic, no step-offs or deformities Eyes: Pupils equal, round and reactive to light.? ENT: Pharynx normal.?+ oral cyanosis Neck: Normal inspection.? Neck supple.? CVS: Normal heart rate and rhythm.? Pulses normal.? Respiratory: + significant respiratory distress.? Breath sounds crackles bilaterally w/ wheezing b/l. Speaking in very short sentences w/ labored breahting. Abdomen: Soft and nontender.? Skin: Skin warm and dry.? Normal skin color.? Normal skin turgor.? Extremities: No lower extremity edema.? No calf ttp. 5/5 strength to bilateral upper and lower extremities Neuro: Oriented X 3.? No motor deficit.? No sensory deficit. CN 2-12 intact Course Course Course Narrative: My attending at the bedside for the majority of this case. Reevaluation(s) Reevaluation #1: Patient still tachy 160s- 170s --> cardiology believes this is VT Patient shocked 200 J --> still in VT Lido push given per Dr. Wang and Lido drip initiated Time: 15:51 Reevaluation #2: Cardiology at the bedside. Fever --> rectal tylenol ordered. Recommends amiodarone 150 mg x 2. Will then proceed with amiodarone drip. He will speak to [facility] for suspected transfer. Time: 15:57 Reevaluation #3: CBC with leukocytosis no left shift. Chemistry with slightly elevated anion gap likely secondary to hypoxic respiratory failure. Lactic acid also markedly elevated 9.4 antibiotics given will hold on fluids as I suspect patient is in a fluid overload state and did not CHF. Troponin 56.2 likely demand ischemia. Total bilirubin 2.2 likely secondary to chronic alcohol use no acute findings. BNP pending Time: 16:06 Additional Reevaluation(s): CCICU at [facility]. 1630 BNP 4133 Patient's pressure soft, Levophed started. Patient accepted at [facility] CCICU Dr. Barreto --> CCT team will transport patient. 1655 [facility] 3 room 6 1724 [facility] field party manager Whitney states that the [facility] unable to take this transfer due to complexity of patient ( patient on 3>/= drips at this time) , CCT at [facility] had to take another call therefore would delay transport until 1999 or 21:00. Patient too unstable to wait this long. [facility] out to [facility] will be here in 13 minutes. Will call could tell though as well as [place] police. 1728 Spoke to emergency contact Shyam Livingston who is aware of plan and took down information of where patient will be 1738 Patient waking up from sedation increased propofol dose. Will also add fentanyl. Will give a pushup 100 mics of fentanyl at this time. 1755 [facility] here for transport Medications Administered Generic Name Dose Route Start Last Admin Trade Name Freq PRN Reason Stop Dose Admin Propofol 1,000 mg in 100 mls @ 0 mls/hr 07/24/24 15:30 07/24/24 16:57 Diprivan IVCONT 20 mcg/kg/min .Q0M ERICK 9.61 mls/hr Titration Protocol Per Protocol Lidocaine HCl/Dextrose 2 gm in 250 mls @ 0 mls/hr 07/24/24 16:00 07/24/24 16:37 Lidocaine Hcl/D5w IVCONT 0 mg/min .Q0M ERICK 0 mls/hr Titration Protocol Per Protocol Amiodarone HCl 900 mg/ Sodium 518 mls @ 34.533 mls/hr 07/24/24 16:15 07/24/24 16:44 Chloride IVCONT 1 mg/min .Q15H1M ERICK 34.53 mls/hr Administration Protocol 1 MG/MIN Norepinephrine Bitartrate 8 mg in 250 mls @ 0 mls/hr 07/24/24 16:30 07/24/24 17:25 Levophed IVCONT 0.07 mcg/kg/min .Q0M ERICK 10.51 mls/hr Titration Protocol Per Protocol Discontinued Medications Generic Name Dose Route Start Last Admin Trade Name Freq PRN Reason Stop Dose Admin Acetaminophen 650 mg 07/24/24 15:54 07/24/24 16:22 Acetaminophen Supp 650 Mg Supp.Rect NJ 07/24/24 15:55 650 mg ONCE ONE Administration Etomidate 20 mg 07/24/24 15:25 07/24/24 15:39 Etomidate 20 Mg/10 Ml Vial IVPUSH 07/24/24 15:26 20 mg ONCE ONE Administration Fentanyl 25 mcg 07/24/24 15:06 07/24/24 15:13 Fentanyl Citrate/Pf 100 Mcg/2 Ml Vial IVPUSH 07/24/24 15:07 25 mcg ONCE ONE Administration Protocol Fentanyl 25 mcg 07/24/24 15:08 07/24/24 15:40 Fentanyl Citrate/Pf 100 Mcg/2 Ml Vial IVPUSH 07/24/24 15:09 25 mcg ONCE ONE Administration Protocol Furosemide 80 mg 07/24/24 15:00 07/24/24 15:00 Furosemide 100 Mg/10 Ml Vial IVPUSH 07/24/24 15:01 80 mg ONCE ONE Administration Protocol Ceftriaxone Sodium 1 gm/ 50 mls @ 100 mls/hr 07/24/24 15:35 07/24/24 16:45 Sodium Chloride IV 07/24/24 16:04 Infused ONCE ONE Infusion Lidocaine HCl 90 mg/ Sodium 104.5 mls @ 627 mls/hr 07/24/24 15:40 07/24/24 17:19 Chloride IV 07/24/24 15:49 Not Given ONCE ONE Amiodarone HCl 150 mg in 100 mls @ 600 mls/hr 07/24/24 15:57 07/24/24 16:45 Nexterone IV 07/24/24 16:06 Infused ONCE ONE Infusion Amiodarone HCl 150 mg in 100 mls @ 600 mls/hr 07/24/24 15:57 07/24/24 16:45 Nexterone IV 07/24/24 16:06 Infused ONCE ONE Infusion Rocuronium [place] 50 mg 07/24/24 15:24 07/24/24 15:39 Rocuronium [place] 50 Mg/5 Ml Vial IVPUSH 07/24/24 15:25 50 mg ONCE ONE Administration Procedures Intubation Intubation Type:: Emergency Endotracheal Intubation Intubation Date:: 07/24/24 Intubation Time:: 15:40 Time out performed: Yes sedative: Etomidate Mg Given: 20 paralytic: Rocuronium Mg Given: 50 Laryngoscope: fiber optic video scope Assist Device Used: fiber optic device ET Tube Size: 7 Tube Secured Depth (cm): 21 Tube Secured Location: lips Tube Placement Confirmation: visualized tube passing through cords, equal breath sounds bilaterally, no breath sounds over epigastrium and confirmation by capnometry Patient Tolerated Procedure: well Intubation Complications: none Medical Decision Making Medical Decision Making [facility] Narrative: 44 yo m presents w/ hypoxia X1 day PE + significant respiratory distress.? Breath sounds crackles bilaterally w/ wheezing b/l. diaphoretic Attending at bedside --> rythem likely bundle branch block w/ tachy arrhythmia or SVT Hx and pe concerning for ARDS w/ possible CHF, PNA, chronic lung disease . Will rule out viral illness. Plan labs, imaging, viral test, cardiology consult RSI preformed at bedside w/ 7.0 tube 21 at the lip no complicaitons Differential Diagnosis Differential Diagnoses: The differential diagnosis associated with the presentation includes Hx and pe concerning for ARDS w/ possible CHF, PNA, chronic lung disease . Will rule out viral illness. Admission/Observation Consideration of admission/observation: Escalation of care including admission/observation considered Likely Consult Healthcare Provider Management of the patient was discussed with: Highway Traffic Control Technician (cardiology ) Lab Data [facility] Lab Attestation statement: I reviewed the patient's lab results. 07/24/24 15:15 07/24/24 15:15 Labs: Lab Results 07/24/24 07/24/24 07/24/24 Range/Units 15:15 16:25 16:49 WBC 12.7 H (4.8-10.8) X10*3/uL RBC 5.14 (4.60-5.80) X10*6/uL Hgb 17.2 (14.0-18.0) g/dl Hct 53.5 H (42.0-52.0) % MCV 104.1 H (80.0-98.0) fL MCH 33.5 H (27.0-33.0) pg MCHC 32.1 (31.0-36.0) g/dl RDW 14.3 (11.0-16.0) % Plt Count 162 (160-400) X10*3/uL MPV 10.7 (9.4-12.4) fL Immature Gran % (Auto) 1.1 H (0.0-0.4) % Neut % (Auto) 55.7 (45-73) % Lymph % (Auto) 34.7 (20-40) % [place] % (Auto) 5.0 (2-11) % Eos % (Auto) 2.9 (0-4) % Baso % (Auto) 0.6 (0-2) % Lymph # (Auto) 4.4 (1.2-4.9) X10*3/uL [place] # (Auto) 0.6 (0.1-1.2) X10*3/uL Eos # (Auto) 0.4 (0.0-0.4) X10*3/uL Baso # (Auto) 0.1 (0.0-0.2) X10*3/uL Abs Immat Gran (auto) 0.14 H (0.00-0.03) X10*3/uL Absolute Neuts (auto) 7.0 (2.0-8.3) x10*3/uL Absolute Nucleated RBC 0.000 (0.0-0.012) X10*3/uL Nucleated RBC % (auto) 0.0 (0.0-0.2) /100WBC PT (10.9-12.4) SEC INR (0.9-1.1) O2 Saturation 98.0 % ABG pH at Pt Temp 7.36 (7.35-7.45) ABG pCO2 at Pt Temp 32 (32-45) mmHg ABG pO2 at Pt Temp 99 (83-108) mmHg ABG HCO3 18 L (22-26) mmol/L ABG Base Excess (Actual) -5.7 mmol/L Sodium 144 (135-145) mmol/L Potassium 4.0 (3.3-5.1) mmol/L Chloride 109 H (96-108) mmol/L Carbon Dioxide 15 L (22-29) mmol/L Anion Gap 24 H (12-20) BUN 10 (9-16) mg/dL Creatinine 1.23 (0.5-1.4) mg/dL Estim Creat Clear Calc 75.6 Estimated GFR > 60 Random Glucose 161 H (60-115) mg/dL Lactic Acid 9.4 H* (0.5-2.0) mmol/L Calcium 9.7 (8.4-10.2) mg/dL Magnesium 2.6 (1.6-2.6) mg/dL Total Bilirubin 2.2 H (0.0-1.0) mg/dL AST 60 H (5-37) U/L ALT 23 (0-40) U/L Alkaline Phosphatase 96 (39-117) U/L Troponin I High Sens 56.2 H (<3.5-35.0) ng/L B-Natriuretic Peptide 4133 H (<100) pg/mL Total Protein 7.9 (6.5-8.0) g/dL Albumin 4.6 (3.5-5.0) g/dL Hold Green Top See Note Urine Opiates Screen Not Detected (Not Detect) Ur Buprenorphine Scrn Not Detected (Not Detect) ng/mL Ur Oxycodone Screen Not Detected (Not Detect) ng/mL Urine Methadone Screen Not Detected (Not Detect) ng/mL Urine Fentanyl Screen POSITIVE H (Not Detect) Ur Barbiturates Screen Not Detected (Not Detect) Ur Phencyclidine Scrn Not Detected (Not Detect) Ur Amphetamines Screen Not Detected (Not Detect) U Benzodiazepines Scrn Not Detected (Not Detect) Urine Cocaine Screen Not Detected (Not Detect) U Marijuana (THC) Screen Not Detected (Not Detect) Ethyl Alcohol 16 mg/dL COVID-19 ([facility]) (Negative) COVID-19 Clin Com 07/24/24 Range/Units 16:58 WBC (4.8-10.8) X10*3/uL RBC (4.60-5.80) X10*6/uL Hgb (14.0-18.0) g/dl Hct (42.0-52.0) % MCV (80.0-98.0) fL MCH (27.0-33.0) pg MCHC (31.0-36.0) g/dl RDW (11.0-16.0) % Plt Count (160-400) X10*3/uL MPV (9.4-12.4) fL Immature Gran % (Auto) (0.0-0.4) % Neut % (Auto) (45-73) % Lymph % (Auto) (20-40) % [place] % (Auto) (2-11) % Eos % (Auto) (0-4) % Baso % (Auto) (0-2) % Lymph # (Auto) (1.2-4.9) X10*3/uL [place] # (Auto) (0.1-1.2) X10*3/uL Eos # (Auto) (0.0-0.4) X10*3/uL Baso # (Auto) (0.0-0.2) X10*3/uL Abs Immat Gran (auto) (0.00-0.03) X10*3/uL Absolute Neuts (auto) (2.0-8.3) x10*3/uL Absolute Nucleated RBC (0.0-0.012) X10*3/uL Nucleated RBC % (auto) (0.0-0.2) /100WBC PT 12.6 H (10.9-12.4) SEC INR 1.1 (0.9-1.1) O2 Saturation % ABG pH at Pt Temp (7.35-7.45) ABG pCO2 at Pt Temp (32-45) mmHg ABG pO2 at Pt Temp (83-108) mmHg ABG HCO3 (22-26) mmol/L ABG Base Excess (Actual) mmol/L Sodium (135-145) mmol/L Potassium (3.3-5.1) mmol/L Chloride (96-108) mmol/L Carbon Dioxide (22-29) mmol/L Anion Gap (12-20) BUN (9-16) mg/dL Creatinine (0.5-1.4) mg/dL Estim Creat Clear Calc Estimated GFR Random Glucose (60-115) mg/dL Lactic Acid (0.5-2.0) mmol/L Calcium (8.4-10.2) mg/dL Magnesium (1.6-2.6) mg/dL Total Bilirubin (0.0-1.0) mg/dL AST (5-37) U/L ALT (0-40) U/L Alkaline Phosphatase (39-117) U/L Troponin I High Sens (<3.5-35.0) ng/L B-Natriuretic Peptide (<100) pg/mL Total Protein (6.5-8.0) g/dL Albumin (3.5-5.0) g/dL Hold Green Top Urine Opiates Screen (Not Detect) Ur Buprenorphine Scrn (Not Detect) ng/mL Ur Oxycodone Screen (Not Detect) ng/mL Urine Methadone Screen (Not Detect) ng/mL Urine Fentanyl Screen (Not Detect) Ur Barbiturates Screen (Not Detect) Ur Phencyclidine Scrn (Not Detect) Ur Amphetamines Screen (Not Detect) U Benzodiazepines Scrn (Not Detect) Urine Cocaine Screen (Not Detect) U Marijuana (THC) Screen (Not Detect) Ethyl Alcohol mg/dL COVID-19 ([facility]) Negative (Negative) COVID-19 Clin Com See Note Independent Interpretation I performed an independent interpretation of an: EKG (EKG concerning for monomorphic V-tach with a ventricular rate of 167 NJ 104, QRS 162. Right axis deviation.) and Plain X-Ray (XR/XR chest 1V IMPRESSION: Pulmonary edema.) Radiology Impression Discussion of test interpretation with radiology: I have reviewed the radiologist's reading. External Record Review External record reviewed: Office record, Outpatient record and Prior outpatient labs Chronic Conditions Patient?s care impacted by: Other (alcholic liver disease, alcohol w/ drawl, CHF, hld, HTN, ) Critical Care Time Critical Care Time Critical Care Time: Yes Total Critical Care Time: 60 Attestation: I attest to this time spent taking care of the patient, obtaining history, physical, reviewing labs, imaging, treatment of patients condition +/- specialist/hospitalist consult Discharge Plan Discharge Clinical Impression: CHF (congestive heart failure), Acute hypoxemic respiratory failure, Tachycardia, Sepsis Patient Disposition: Xfer Acute [facility] Transfer Details: Dr. Barreto [facility] [employer] 3 room 6 Prescriptions: No Action albuterol sulfate [ProAir HFA] 90 mcg/actuation HFA aerosol inhaler 2 puff inhalation Q4H PRN (Reason: Shortness Of Breath) budesonide-formoterol 160-4.5 mcg/actuation HFA aerosol inhaler 2 puff inhalation BID Incruse Ellipta 62.5 mcg/actuation blister with device 1 puff inhalation DAILY furosemide 40 mg Tablet 40 mg PO DAILY Qty: 30 0RF Protocol: Hold for SBP< HOLD for SBP < : 90 lisinopril 5 mg Tablet 5 mg PO DAILY Qty: 60 0RF Protocol: Hold for SBP< HOLD for SBP < : 90 nicotine 7 mg/24 hr Patch 24 Hour 7 mg transdermal DAILY Qty: 14 0RF metoprolol tartrate 50 mg tablet 50 mg PO DAILY gabapentin 600 mg tablet 600 mg PO DAILY Ubrelvy 100 mg tablet 50 - 100 mg PO ONCE PRN (Reason: migraine headache) 30 Days Qty: 16 3RF Rx Instructions: take at onset of migraine, may repeat in 2hrs (may take w/ Ibuprofen) riboflavin (vitamin B2) 400 mg tablet 400 mg PO DAILY 30 Days Qty: 30 6RF magnesium oxide 400 mg (241.3 mg magnesium) tablet 400 mg PO BEDTIME 30 Days Qty: 30 6RF Rx Instructions: may hold for loose stools Print Language: Armenian
[2024-07-24] MEDS: fentaNYL citrate/PF 100 MCG/2 ML VIAL 25 MCG IVPUSH ×2 (15:13→15:40)
[2024-07-24] MEDS: propofoL 1,000 MG/100 ML VIAL 14.42 MG IVCONT (15:25)
[2024-07-24 15:28] LABS: MANUAL DIFF FLAG NO
--- NOTE | 2024-07-24 15:28 | ECG_ITS ---
Test Reason : TACHY Blood Pressure : / mmHG Vent. Rate : 167 BPM Atrial Rate : 167 BPM P-R Int : 104 ms QRS Dur : 162 ms QT Int : 292 ms P-R-T Axes : 000 096 -49 degrees QTc Int : 487 ms Wide QRS tachycardia Rightward axis Non-specific intra-ventricular conduction block Abnormal ECG When compared with ECG of 23-JAN-2021 15:07, Wide QRS tachycardia is now Present Heart rate has increased Referred By: Terra Wang Electronically Signed By:MACKENZIE WHYTE
[2024-07-24] MEDS: Etomidate 20 MG/10 ML VIAL IVPUSH (15:39)
[2024-07-24] MEDS: Rocuronium Bromide 50 MG/5 ML VIAL IVPUSH (15:39)
[2024-07-24 15:41] LABS: Basophils Absolute Auto 0.1 X10*3/uL (0.0-0.2); Basophils Percent Auto 0.6 % (0-2); Eosinophils Absolute Auto 0.4 X10*3/uL (0.0-0.4); Eosinophils Percent Auto 2.9 % (0-4); Hematocrit 53.5 % (42.0-52.0); Hemoglobin 17.2 g/dl (14.0-18.0); Imm Gran Abs Auto 0.14 X10*3/uL (0.00-0.03); Imm Gran Pct Auto 1.1 % (0.0-0.4); Lymphocytes Absolute Auto 4.4 X10*3/uL (1.2-4.9); Lymphocytes Percent Auto 34.7 % (20-40); Mean Corpuscular HGB Conc 32.1 g/dl (31.0-36.0); Mean Corpuscular Hemoglobin 33.5 pg (27.0-33.0); Mean Corpuscular Volume 104.1 fL (80.0-98.0); Mean Platelet Volume 10.7 fL (9.4-12.4); Monocytes Absolute Auto 0.6 X10*3/uL (0.1-1.2); Neutrophils Percent Auto 55.7 % (45-73); Platelet Count 162 X10*3/uL (160-400); Red Blood Count 5.14 X10*6/uL (4.60-5.80); Red Cell Distribution Width 14.3 % (11.0-16.0); White Blood Count 12.7 X10*3/uL (4.8-10.8)
[2024-07-24 15:46] LABS: Alanine Aminotransferase 23 U/L (0-40); Albumin Level 4.6 g/dL (3.5-5.0); Anion Gap 24 (12-20); Aspartate Amino Transferase 60 U/L (5-37); Bilirubin Total 2.2 mg/dL (0.0-1.0); Blood Urea Nitrogen 10 mg/dL (9-16); Calcium 9.7 mg/dL (8.4-10.2); Carbon Dioxide 15 mmol/L (22-29); Chloride 109 mmol/L (96-108); Creatinine Clr Calc Pharmacy 75.6; Estimated Glomerular Filt Rate > 60; Glucose Random 161 mg/dL (60-115); Magnesium 2.6 mg/dL (1.6-2.6); Sodium 144 mmol/L (135-145); Total Protein 7.9 g/dL (6.5-8.0)
[2024-07-24] MEDS: Lidocaine HCl/D5W 2 GM/250 ML IV.SOLN IVCONT (15:46)
[2024-07-24 15:47] LABS: Alkaline Phosphatase 96 U/L (39-117); Ethanol 16 mg/dL
[2024-07-24 15:54] LABS: Troponin-I High Sensitivity 56.2 ng/L (<3.5-35.0)
[2024-07-24 15:59] LABS: Lactic Acid 9.4 mmol/L (0.5-2.0)
[2024-07-24] MEDS: Amiodarone/Dextrose 150 MG/100 ML PLAST..BAG 600 MG IV ×2 (16:10→16:21)
[2024-07-24 16:18] LABS: B Type Natriuretic Peptide 4133 pg/mL (<100)
[2024-07-24] MEDS: Acetaminophen Supp 650 MG SUPP.RECT PR (16:22)
[2024-07-24] MEDS: Norepinephrine Bitartrate/D5W 8 MG/250 ML PLAST..BAG 7.51 MG IVCONT (16:33)
[2024-07-24] MEDS: cefTRIAXone sodium 1 GM in 0.9 % Sodium Chloride 50 ML IV (16:34)
[2024-07-24 16:35] LABS: ABG Base Excess -5.7 mmol/L; ABG HCO3 18 mmol/L (22-26); ABG pCO2 32 mmHg (32-45); ABG pH 7.36 (7.35-7.45); ABG pO2 99 mmHg (83-108)
--- NOTE | 2024-07-24 16:36 | P.CONCA_ITS ---
History of Present Illness History of Present Illness Date of Service: 07/24/24 Requesting physician: Geni Tran Consult reason: other (Acute respiratory failure) Chief complaint: Asthma, possible CHF, duo neb & nitro given Narrative: I was consulted emergently to see Ashwin in cardiology consultation today for acute respiratory failure. Limited history available from the patient as by the time I came to the bedside patient was already intubated. Patient came to the hospital in acute respiratory distress was found by the side of sharp and stopped. Unknown history otherwise. Was reported prior to getting that he has been getting short of breath for couple of days and then decided come to the emergency room. In the emergency room with acute respiratory distress with acute hypoxemic respiratory failure with significant workup breathing and significant tachycardia and was decided due to his respiratory distress to be intubated and put on mechanical ventilation. He was noted to have wide complex tachycardia of unclear etiology with negative concordance pattern on the 12 lead EKG and suspected to have sustained VT although he did not respond to synchronized cardioversion and/or lidocaine therapy. He has been given Lasix with good diuresis. Prior history obtained from the prior chart with marked LV systolic dysfunction secondary to nonischemic cardiomyopathy, [employer] D, although I was not able to communicate with the device with 2 different program murmurs. Patient also came in with significant hypertension and with propofol and Lasix, the blood pressure has improved. Lidocaine drip for stop and was started on amiodarone drip due to unknown wide complex tachycardia which now appears to be either sinus tachycardia with paced rhythm or left bundle-branch block. He has underlying left bundle-branch block from before. Patient noted to be febrile up to 102 degrees and is profoundly diaphoretic. Lactic acid of 9.4. Creatinine stable at 1.23. No other history available at this time. Review of Systems 2 Review of Systems: Yes unobtainable due to endotracheal tube PMFSH Past Medical History Medical History (Updated 07/24/24 @ 16:10 by ELI Blank) Elevated MCV LBBB (left bundle branch block) Essential hypertension Acute on chronic systolic (congestive) heart failure Alcoholic cardiomyopathy Alcohol abuse Hyperlipidemia Hypertension Alcohol abuse Acute congestive heart failure Cardiomyopathy Cardiomyopathy Asthma Surgical History Surgical History (Updated 06/16/24 @ 10:44 by Clare Christiansen CMA) H/O discectomy Social History Social History Household Members Other:: Nephew Housing: House Do you presently have visiting nurse or other home services: No Alcohol intake: current Alcohol intake frequency: a few times a week Alcohol type: beer and hard liquor Cigarette Packs Per Day: 2 Cigarettes Per Day: 40.0 Second Hand Smoke Exposure: No Substance Use Type: Marijuana Advance Directives: No Advance Directives Information Provided: No Meds Allergies Allergy/AdvReac Type Severity Reaction Status Date / Time melon Allergy Severe SWELLING Verified 07/24/24 15:37 soy [SOY] Allergy Severe RESPIRATORY Verified 07/24/24 15:37 PROBLEMS acetaminophen [From TYLENOL] Allergy Unknown UNKNOWN Verified 07/24/24 15:37 azithromycin [From ZITHROMAX] Allergy Unknown UNKNOWN Verified 07/24/24 15:37 nut - unspecified [nut] Allergy Unknown RESPIRATORY Verified 07/24/24 15:37 ISSUES SEAFOOD Allergy Severe SWELLING, Uncoded 07/24/24 15:37 RESPIRATORY PROBLEMS Active Medications: Current Medications Nitroglycerin/Dextrose (Nitroglycerin/D5w) 100 mg in 250 mls @ 0 mls/hr IVCONT .Q0M ERICK; Protocol Propofol (Diprivan) 1,000 mg in 100 mls @ 0 mls/hr IVCONT .Q0M ERICK; Protocol Last Admin: 07/24/24 15:25 Dose: 30 mcg/kg/min, 14.42 mls/hr Lidocaine HCl/Dextrose (Lidocaine Hcl/D5w) 2 gm in 250 mls @ 0 mls/hr IVCONT .Q0M ERICK; Protocol Amiodarone HCl 900 mg/ Sodium (Chloride) 518 mls @ 34.533 mls/hr IVCONT .Q15H1M ERICK; Protocol Norepinephrine Bitartrate (Levophed) 8 mg in 250 mls @ 0 mls/hr IVCONT .Q0M ERICK; Protocol Last Admin: 07/24/24 16:33 Dose: 0.05 mcg/kg/min, 7.51 mls/hr Home Medications ?Medication ?Instructions ?Recorded ?Confirmed ?Last Taken ?Type albuterol sulfate 90 mcg/actuation 2 puff inhalation Q4H PRN 01/23/21 06/16/24 Unknown History aerosol inhaler (ProAir HFA) Shortness Of Breath budesonide-formoterol HFA 160 2 puff inhalation BID 01/23/21 06/16/24 Unknown History mcg-4.5 mcg/actuation aerosol inhaler umeclidinium 62.5 mcg/actuation 1 puff inhalation DAILY 01/23/21 06/16/24 Unknown History blister powder for inhalation (Incruse Ellipta) gabapentin 600 mg tablet 600 mg PO DAILY 06/16/24 06/16/24 Unknown History metoprolol tartrate 50 mg tablet 50 mg PO DAILY 06/16/24 06/16/24 Unknown History Physical Exam 2 Vital Signs: Vital Signs: Last Vital Signs Pulse 115 H 07/24/24 16:33 Resp 18 07/24/24 15:28 BP 95/67 07/24/24 16:33 Pulse Ox 86 L 07/24/24 15:28 FiO2 100 07/24/24 15:41 BMI result Body Mass Index 26.8 Const: General: ill appearing and other (Diaphoretic young man) Nutritional Appearance: average body habitus and other (Intubated) HEENT: Head: Yes normocephalic and Yes atraumatic Neck: Neck: Yes trachea midline and Yes supple Resp: Effort & Inspection: symmetric chest movement and other (Intubated) A uscultation: crackles Cardio: Rate: regular rate and tachycardic Heart sounds: S1 normal heart sound present, S2 normal heart sound present, no click, no gallops, no murmurs and no rubs GI: Auscultation: normal bowel sounds Skin: General skin exam: other (Petechial rash) Neuro: General: other (Not evaluated) Extrem: General: Yes no clubbing, cyanosis or edema Objective Labs and Meds 07/24/24 15:15 07/24/24 15:15 Lab results: Laboratory Results - last 24 hr 07/24/24 15:15 WBC 12.7 H RBC 5.14 Hgb 17.2 Hct 53.5 H MCV 104.1 H MCH 33.5 H MCHC 32.1 RDW 14.3 Plt Count 162 MPV 10.7 Immature Gran % (Auto) 1.1 H Neut % (Auto) 55.7 Lymph % (Auto) 34.7 [place] % (Auto) 5.0 Eos % (Auto) 2.9 Baso % (Auto) 0.6 Lymph # (Auto) 4.4 [place] # (Auto) 0.6 Eos # (Auto) 0.4 Baso # (Auto) 0.1 Abs Immat Gran (auto) 0.14 H Absolute Neuts (auto) 7.0 Absolute Nucleated RBC 0.000 Nucleated RBC % (auto) 0.0 Sodium 144 Potassium 4.0 Chloride 109 H Carbon Dioxide 15 L Anion Gap 24 H BUN 10 Creatinine 1.23 Estim Creat Clear Calc 75.6 Estimated GFR > 60 Random Glucose 161 H Lactic Acid 9.4 H* Calcium 9.7 Magnesium 2.6 Total Bilirubin 2.2 H AST 60 H ALT 23 Alkaline Phosphatase 96 Troponin I High Sens 56.2 H B-Natriuretic Peptide 4133 H Total Protein 7.9 Albumin 4.6 Hold Green Top See Note Ethyl Alcohol 16 Imaging Radiologist's impression: Impressions Chest X-Ray 07/24/24 14:58 IMPRESSION: Pulmonary edema. Electronically signed by: Tyron Quiroz MD 07/24/2024 03:41 PM EDT RP Assessment and Plan (1) Acute hypoxemic respiratory failure: Status: Acute Acute hypoxemic respiratory failure this young man with known prior severe LV systolic dysfunction with clinical findings consistent with pulmonary edema needed mechanical ventilation right away to support his airway, subsequently noted to have wide complex tachycardia which clinically now appears to be sinus tachycardia with either pacing or left bundle-branch block. VT can not be ruled out. For now will continue amiodarone drip. I was not able to interrogate his device using 2 different program murmurs. He also clinically appears to have sepsis with elevated lactic acid as well as tachycardia with fever. Unknown source. Endocarditis can be possible. He is currently being covered be antibiotics broad-spectrum. Blood cultures have been drawn. Requires care at a tertiary care center given his advanced cardiovascular disease and pulmonary edema. Blood pressure after intubation and with propofol drip has become softer. Would hold off on nitrate drip for now. Strict intake and output chart needs to be pursued. Continue gentle diuresis. Continue monitor labs. Overall prognosis is guarded. Greater than 1 hour was spent in managing his care and coordinating transfer to [facility]. He has been accepted to [facility] by . Procedures Date of Service Date of Service: 07/24/24
[2024-07-24] MEDS: Amiodarone HCL 900 MG in 0.9 % Sodium Chloride 500 ML 34.53 MG IVCONT (16:44)
--- NOTE | 2024-07-24 17:02 | PC.NURSE ---
Addendum entered by Dona Troncoso RN 07/24/24 17:10: OG tube placed by md after intubation Addendum entered by Dona Troncoso RN 07/24/24 17:10: 150ml output upon duval placement. Original Note: patient presented to ED via ems, patient on cpap for ems for increased wob. upon arrival to ED patient struggling to make one word sentences, diaphoretic, trachypneic states he started to feel sob last night. patient lips and finger nail beds noted to be cyanotic. decision made to intubate, RSI done with 20 etomadate 50 Jermaine given per JAN. patient intubated with 7.0 ETT tube 24 at the lip. patient maintaining vent synchrony. 16 fr duval placed, temp sensing 10cc balloon. patient temp noted to reach 100 degrees. at 1348 ED provider requested to shock patient due to monitor showed vfib, patient shocked with 200j with no change in cardiac rhythm.
[2024-07-24 17:07] LABS: Amphetamine Screen Urine Not Detected (Not Detect); Barbiturates, Urine Not Detected (Not Detect); Benzodiazepines Screen Urine Not Detected (Not Detect); Buprenorphine Scr Not Detected (Not Detect); Cannabinoid Screen Urine Not Detected (Not Detect); Cocaine Screen Urine Not Detected (Not Detect); Fentanyl, urine POSITIVE (Not Detect); Methadone Screen, Urine Not Detected (Not Detect); Opiate Screen Urine Not Detected (Not Detect); Oxycodone Screen Urine Not Detected (Not Detect); Phencyclidine Screen Urine Not Detected (Not Detect)
[2024-07-24 17:18] LABS: INTERNATIONAL NORM RATIO 1.1 (0.9-1.1); Prothrombin Time 12.6 SEC (10.9-12.4)
[2024-07-24 17:20] LABS: ABG Refer to POC result
[2024-07-24 17:27] LABS: IDNOW Serial# 08D9AD1C
[2024-07-24 17:28] LABS: COVID-19 Test Negative (Negative)
[2024-07-24 17:37] LABS: Reflex Lactate? Lactic Acid Added
[2024-07-24] MEDS: fentaNYL citrate/PF 100 MCG/2 ML VIAL IVPUSH (17:43)
[2024-07-24] MEDS: Midazolam HCl/NS 50 MG/50 ML PLAST..BAG IVCONT (17:52)
[2024-07-24] MEDS: propofoL 1,000 MG/100 ML VIAL 9.61 MG IVCONT (18:08)
--- NOTE | 2024-07-24 18:38 | PC.NURSE ---
report given to [facility] ERIC leahy.
== END 2024-07-24 18:44 | disposition short-term general hospital (02) ==
PROVIDERS: Physician Assistant; Emergency Provider Emergency Medicine
DX: I11.0 Hypertensive heart disease with heart failure (principal); I50.9 Heart failure, unspecified; J96.01 Acute respiratory failure with hypoxia; R00.0 Tachycardia, unspecified; A41.9 Sepsis, unspecified organism; E87.20 Acidosis, unspecified; R06.02 Shortness of breath; R50.9 Fever, unspecified; D72.829 Elevated white blood cell count, unspecified; J81.1 Chronic pulmonary edema; F10.10 Alcohol abuse, uncomplicated; Y90.0 Blood alcohol level of less than 20 mg/100 ml; K70.9 Alcoholic liver disease, unspecified; E78.5 Hyperlipidemia, unspecified; J45.909 Unspecified asthma, uncomplicated; F17.210 Nicotine dependence, cigarettes, uncomplicated; F12.90 Cannabis use, unspecified, uncomplicated; Z79.899 Other long term (current) drug therapy; Z11.52 Encounter for screening for COVID-19
CPT/HCPCS: 31500; 36415; 71045; 80053; 80307; 82803; 83605; 83735; 83880; 84484; 85025; 85610; 87040; 87635; 93005; 94002; 96365; 96366; 96367; 96368; 96375; 96376; 99285; 99291; J0282; J0283; J0696; J1940; J2251; J2704; J3010

== ENCOUNTER → 2024-07-24 15:43 | Outpatient (BNV) | payer OTHER, SELFPAY | PROVIDERS: Emergency Provider Emergency Medicine; Visit Provider Internal Medicine Cardiovascular Disease | DX: J96.01 Acute respiratory failure with hypoxia (principal) | CPT/HCPCS: 99285 ==